=== PATIENT | female | born 1940 | race African-American/Black ===

== ENCOUNTER 2018-10-18 19:30 | Inpatient (IN) | payer MEDICARE, BC ==
[~2018-10-18] VITALS: Ht 175.3 cm; Wt 90.7 kg
[~2018-10-18 19:30] MED LIST: AMLO10TA80 PO; ASPI-1073 PO; FURO40TA5 PO; HYDR-3512 PO
[2018-10-18 20:00] VITALS: BP 211/85
[2018-10-18] MEDS ORDERED: DOCUSATE SODIUM 100MG CAPSULE PO PRN (20:30)
[2018-10-18] MEDS ORDERED: IPRATROPIUM/ALBUTEROL 0.5-3(2.5)MG/3ML NEB HHN PRN (20:30)
[2018-10-18] MEDS ORDERED: LORAZEPAM 0.5MG TABLET PO PRN (20:30)
[2018-10-18] MEDS ORDERED: GUAIFENESIN 200MG/10ML SUGAR FREE UDC PO PRN (20:30)
[2018-10-18] MEDS ORDERED: ONDANSETRON HCL 4MG/2ML INJ IV PRN (20:30)
[2018-10-18] MEDS ORDERED: DIPHENHYDRAMINE 50MG/ML VIAL IV PRN (20:30)
[2018-10-18] MEDS ORDERED: ACETAMINOPHEN 325MG TABLET PO PRN (20:30)
[2018-10-18] MEDS ORDERED: CLON0.3T PO (20:32)
[2018-10-18] MEDS ORDERED: LISI40TA4 PO (20:32)
[2018-10-18] MEDS ORDERED: NIFE90TA34 PO (20:32)
[2018-10-18] MEDS ORDERED: HYDR-4009 PO (20:32)
[2018-10-18] MEDS ORDERED: BRIM5DRO EACHEYE (20:32)
[2018-10-18] MEDS ORDERED: HYDRALAZINE 10 MG in SODIUM CHLORIDE 0.9% 49.5 ML IV PRN (21:00)
[2018-10-18] MEDS: HYDROCODONE/ACETAMINOPHEN 10/325MG TABLET PO PRN (21:09)
[2018-10-18] MEDS: CLONIDINE 0.3MG TABLET PO SCH (21:10)
[2018-10-18 21:30] VITALS: BP 211/85
[2018-10-18] MEDS: MORPHINE SULFATE 2 MG/ML CPJ (NOT FOR IM USE) IV PRN (23:16)
[2018-10-18] MEDS: SODIUM CHLORIDE 0.9% INJ 3ML FLUSH IVF SCH (23:39)
[2018-10-19] VITALS: BP 154/70
[2018-10-19] MEDS: MORPHINE SULFATE 2 MG/ML CPJ (NOT FOR IM USE) IV PRN ×3 (03:16→12:55)
[2018-10-19 04:00] VITALS: BP 168/69
[2018-10-19] MEDS: CLONIDINE 0.3MG TABLET PO SCH ×3 (06:20→22:15)
[2018-10-19] MEDS: SODIUM CHLORIDE 0.9% INJ 3ML FLUSH IVF SCH ×3 (06:20→22:40)
[2018-10-19 06:39] LABS: BASOPHILS % 0.4 % (0.0-2.0); EOSINOPHILS % 0.6 % (0.0-5.0); HEMATOCRIT. 33.3 % (36.0-48.0); HEMOGLOBIN. 11.2 g/dL (12.0-16.0); LYMPHOCYTES % 35.4 % (20.0-50.0); MEAN CORPUSCULAR HEMOGLOBIN 31.5 pg (28.0-32.0); MEAN CORPUSCULAR VOLUME 93.3 fL (81.0-99.0); MEAN PLATELET VOLUME 8.2 fl (7.4-10.4); MONOCYTES % 5.4 % (2.0-8.0); NEUTROPHILS % 58.2 % (40.0-76.0); PLATELET 266 x1000/uL (130-400); RED BLOOD CELL COUNT 3.57 mill/uL (4.2-5.4); RED CELL DISTRIBUTION WIDTH 15.6 % (11.6-14.6)
[2018-10-19 06:42] LABS: PROTHROMBIN TIME 9.9 sec (9.6-11.0)
[2018-10-19 06:44] LABS: CHLORIDE 108 mEq/L (98-107)
[2018-10-19 08:00] VITALS: BP 169/68
[2018-10-19] MEDS: FUROSEMIDE 40MG TABLET PO SCH (08:50)
[2018-10-19] MEDS: NIFEDIPINE XL 90MG TAB PO SCH (08:50)
[2018-10-19] MEDS: LISINOPRIL 40MG TABLET PO SCH (08:50)
[2018-10-19] MEDS ORDERED: ASPIRIN 81MG EC TABLET PO SCH (09:00)
[2018-10-19] MEDS ORDERED: POTASSIUM CHLORIDE 20MEQ TABLET SR PO NR (09:15)
[2018-10-19 12:00] VITALS: BP 138/75
[2018-10-19] MEDS ORDERED: GADOBENATE DIMEGLUMINE 529 MG/ML 10ML IV ONE (15:10)
[2018-10-19 16:00] VITALS: BP 124/55
[2018-10-19 20:00] VITALS: BP 163/69
[2018-10-19] MEDS: HYDROCODONE/ACETAMINOPHEN 10/325MG TABLET PO PRN (20:27)
[2018-10-20] VITALS (7 sets, daily range): BP systolic 115–205; BP diastolic 55–76
[2018-10-20] MEDS: MORPHINE SULFATE 2 MG/ML CPJ (NOT FOR IM USE) IV PRN (04:13)
[2018-10-20] MEDS: CLONIDINE 0.1MG TABLET PO PRN ×3 (04:14→11:42)
[2018-10-20] MEDS: HYDROCODONE/ACETAMINOPHEN 10/325MG TABLET PO PRN ×2 (04:27→17:56)
[2018-10-20] MEDS: CLONIDINE 0.3MG TABLET PO SCH ×3 (06:39→20:57)
[2018-10-20] MEDS: SODIUM CHLORIDE 0.9% INJ 3ML FLUSH IVF SCH ×2 (06:46→13:21)
[2018-10-20 07:17] LABS: BASOPHILS % 0.9 % (0.0-2.0); HEMATOCRIT. 34.7 % (36.0-48.0); HEMOGLOBIN. 11.5 g/dL (12.0-16.0); LYMPHOCYTES % 42.9 % (20.0-50.0); MEAN CORPUSCULAR HEMOGLOBIN 30.7 pg (28.0-32.0); MEAN CORPUSCULAR VOLUME 92.7 fL (81.0-99.0); MEAN PLATELET VOLUME 7.9 fl (7.4-10.4); MONOCYTES % 5.2 % (2.0-8.0); PLATELET 237 x1000/uL (130-400); RED BLOOD CELL COUNT 3.75 mill/uL (4.2-5.4); RED CELL DISTRIBUTION WIDTH 15.2 % (11.6-14.6)
[2018-10-20 07:28] LABS: CHLORIDE 105 mEq/L (98-107)
[2018-10-20] MEDS: FUROSEMIDE 40MG TABLET PO SCH (08:34)
[2018-10-20] MEDS: NIFEDIPINE XL 90MG TAB PO SCH (08:35)
[2018-10-20] MEDS: LISINOPRIL 40MG TABLET PO SCH (08:35)
[2018-10-20] MEDS ORDERED: LACTULOSE 20G/30ML UDC PO NR (15:30)
[2018-10-20] MEDS ORDERED: BISACODYL 5MG TABLET PO PRN (15:30)
[2018-10-20] MEDS ORDERED: DOCUSATE SODIUM 100MG CAPSULE PO SCH (17:00)
[2018-10-20] MEDS ORDERED: MORPHINE SULFATE 15MG TABLET SR PO SCH (21:00)
[2018-10-22 15:14] LABS: CANCER ANTIGEN 125 40.4 U/mL (0.0-38.1)
== END 2018-10-20 21:17 | DRG 551 ==
LOC: 6EST 19:30
PROVIDERS: ADMIT Internal Medicine Critical Care Medicine; ATTEND Internal Medicine Critical Care Medicine
DX: M48.061 Spinal stenosis, lumbar region without neurogenic claudication (principal); S34.112A Complete lesion of L2 level of lumbar spinal cord, initial encounter; E87.6 Hypokalemia; I10 Essential (primary) hypertension; J30.9 Allergic rhinitis, unspecified; J32.9 Chronic sinusitis, unspecified; M47.816 Spondylosis without myelopathy or radiculopathy, lumbar region; Z85.3 Personal history of malignant neoplasm of breast; Z88.0 Allergy status to penicillin; Z79.82 Long term (current) use of aspirin; Z79.899 Other long term (current) drug therapy; M48.07 Spinal stenosis, lumbosacral region; M43.16 Spondylolisthesis, lumbar region; M54.16 Radiculopathy, lumbar region
CPT/HCPCS: 36415; 71045; 72131; 72141; 72146; 72148; 73721; 80048; 82105; 82378; 86300; 86304; 97110; 97116; 97161; A9577; C1893; J2270

== ENCOUNTER 2018-10-20 21:20 | Inpatient (IN) | payer MEDICARE, BC ==
[~2018-10-20] VITALS: Ht 175.3 cm; Wt 90.7 kg
[~2018-10-20 21:20] MED LIST changes: +BRIM5DRO EACHEYE; +CLON0.3T PO; +HYDR-4009 PO; +LISI40TA4 PO; +NIFE90TA34 PO
[2018-10-20 21:30] VITALS: BP 121/60
[2018-10-20] MEDS ORDERED: ACETAMINOPHEN 325MG TABLET PO PRN (22:15)
[2018-10-20] MEDS ORDERED: GUAIFENESIN 200MG/10ML SUGAR FREE UDC PO PRN (22:15)
[2018-10-20] MEDS ORDERED: DIPHENHYDRAMINE 50MG/ML VIAL IV PRN (22:15)
[2018-10-20] MEDS ORDERED: LORAZEPAM 0.5MG TABLET PO PRN (22:15)
[2018-10-20] MEDS ORDERED: DOCUSATE SODIUM 100MG CAPSULE PO PRN (22:15)
[2018-10-20] MEDS ORDERED: IPRATROPIUM/ALBUTEROL 0.5-3(2.5)MG/3ML NEB HHN PRN (22:15)
[2018-10-20] MEDS ORDERED: ONDANSETRON HCL 4MG/2ML INJ IV PRN (22:15)
[2018-10-20] MEDS ORDERED: CLONIDINE 0.1MG TABLET PO PRN (22:15)
[2018-10-20] MEDS: CLONIDINE 0.3MG TABLET PO SCH (22:30)
[2018-10-21] VITALS: BP 129/58
[2018-10-21] MEDS ORDERED: HYDRALAZINE 10 MG in SODIUM CHLORIDE 0.9% 49.5 ML IV PRN (00:30)
[2018-10-21] MEDS: HYDROCODONE/ACETAMINOPHEN 10/325MG TABLET PO PRN (00:45)
[2018-10-21] MEDS: MORPHINE SULFATE 2 MG/ML CPJ (NOT FOR IM USE) IV PRN ×3 (03:59→23:51)
[2018-10-21] MEDS: CLONIDINE 0.3MG TABLET PO SCH ×3 (06:54→21:43)
[2018-10-21] MEDS: SODIUM CHLORIDE 0.9% INJ 3ML FLUSH IVF SCH ×3 (06:54→21:43)
[2018-10-21 07:58] VITALS: BP 131/58
[2018-10-21] MEDS ORDERED: BRIM5DRO EACHEYE (08:00)
[2018-10-21] MEDS: FUROSEMIDE 40MG TABLET PO SCH (09:34)
[2018-10-21] MEDS: NIFEDIPINE XL 90MG TAB PO SCH (09:34)
[2018-10-21] MEDS: DOCUSATE SODIUM 100MG CAPSULE PO SCH ×2 (09:34→16:02)
[2018-10-21] MEDS: LISINOPRIL 40MG TABLET PO SCH (09:35)
[2018-10-21] MEDS: MORPHINE SULFATE 15MG TABLET SR PO SCH ×2 (09:35→20:24)
[2018-10-21] MEDS: BISACODYL 5MG TABLET PO PRN (13:54)
[2018-10-21] MEDS: ALPHAGAN P 0.1% OP SCH (16:02)
[2018-10-21] MEDS ORDERED: BRIMONIDINE 0.2% OPHTH DROPS 5ML BOTHEYE SCH (17:00)
[2018-10-21 20:00] VITALS: BP 106/67
[2018-10-21 20:12] LABS: CLARITY URINE CLEAR (CLEAR); COLOR URINE YELLOW (YELLOW); KETONES URINE NEGATIVE (NEGATIVE); LEUKOCYTE ESTERASE URINE NEGATIVE (NEGATIVE); NITRITE URINE NEGATIVE (NEGATIVE); OCCULT BLOOD URINE TRACE (NEGATIVE); PROTEIN URINE NEGATIVE (NEGATIVE); SPECIFIC GRAVITY URINE 1.014 (1.005-1.030); UROBILINOGEN URINE 0.2 E.U./dL (0.2-1.0)
[2018-10-22] MEDS: MORPHINE SULFATE 2 MG/ML CPJ (NOT FOR IM USE) IV PRN (00:41)
[2018-10-22] MEDS: CLONIDINE 0.3MG TABLET PO SCH ×3 (05:26→22:00)
[2018-10-22] MEDS: SODIUM CHLORIDE 0.9% INJ 3ML FLUSH IVF SCH ×3 (05:27→22:08)
[2018-10-22 06:41] LABS: BASOPHILS % 1.3 % (0.0-2.0); EOSINOPHILS % 2.9 % (0.0-5.0); HEMATOCRIT. 35.2 % (36.0-48.0); MEAN CORPUSCULAR HEMOGLOBIN 31.5 pg (28.0-32.0); MEAN CORPUSCULAR VOLUME 92.4 fL (81.0-99.0); MEAN PLATELET VOLUME 7.3 fl (7.4-10.4); NEUTROPHILS % 54.8 % (40.0-76.0); PLATELET 184 x1000/uL (130-400); RED BLOOD CELL COUNT 3.81 mill/uL (4.2-5.4)
[2018-10-22] MEDS: HYDROCODONE/ACETAMINOPHEN 10/325MG TABLET PO PRN ×2 (06:44→14:54)
[2018-10-22 06:48] LABS: CHLORIDE 104 mEq/L (98-107)
[2018-10-22 07:52] VITALS: BP 126/63
[2018-10-22] MEDS: DOCUSATE SODIUM 100MG CAPSULE PO SCH ×2 (08:37→16:18)
[2018-10-22] MEDS: MORPHINE SULFATE 15MG TABLET SR PO SCH ×2 (08:37→20:39)
[2018-10-22] MEDS: ALPHAGAN P 0.1% OP SCH ×2 (08:37→16:18)
[2018-10-22] MEDS: NIFEDIPINE XL 90MG TAB PO SCH (08:38)
[2018-10-22] MEDS: LISINOPRIL 40MG TABLET PO SCH (08:38)
[2018-10-22] MEDS: FUROSEMIDE 40MG TABLET PO SCH (08:42)
[2018-10-22] MEDS ORDERED: POTASSIUM CHLORIDE 20MEQ TABLET SR PO NR (09:45)
[2018-10-22 20:00] VITALS: BP 120/50
[2018-10-23] MEDS: MORPHINE SULFATE 2 MG/ML CPJ (NOT FOR IM USE) IV PRN ×2 (00:49→15:17)
[2018-10-23] MEDS: CLONIDINE 0.3MG TABLET PO SCH ×3 (05:30→22:19)
[2018-10-23] MEDS: SODIUM CHLORIDE 0.9% INJ 3ML FLUSH IVF SCH ×3 (05:38→20:44)
[2018-10-23 07:21] LABS: CHLORIDE 106 mEq/L (98-107)
[2018-10-23 07:38] VITALS: BP 122/53
[2018-10-23] MEDS: DOCUSATE SODIUM 100MG CAPSULE PO SCH ×2 (08:36→16:28)
[2018-10-23] MEDS: NIFEDIPINE XL 90MG TAB PO SCH (08:37)
[2018-10-23] MEDS: MORPHINE SULFATE 15MG TABLET SR PO SCH ×2 (08:37→20:43)
[2018-10-23] MEDS: FUROSEMIDE 40MG TABLET PO SCH (08:37)
[2018-10-23] MEDS: LISINOPRIL 40MG TABLET PO SCH (08:38)
[2018-10-23] MEDS: ALPHAGAN P 0.1% OP SCH ×2 (08:42→16:28)
[2018-10-23] MEDS: BISACODYL 5MG TABLET PO PRN (16:28)
[2018-10-23 20:00] VITALS: BP 121/59
[2018-10-24] MEDS: CLONIDINE 0.3MG TABLET PO SCH ×3 (05:45→22:00)
[2018-10-24] MEDS: SODIUM CHLORIDE 0.9% INJ 3ML FLUSH IVF SCH ×3 (05:45→21:37)
[2018-10-24 06:43] LABS: BASOPHILS % 0.7 % (0.0-2.0); HEMATOCRIT. 38.9 % (36.0-48.0); HEMOGLOBIN. 12.8 g/dL (12.0-16.0); LYMPHOCYTES % 37.8 % (20.0-50.0); MEAN CORPUSCULAR VOLUME 93.8 fL (81.0-99.0); MEAN PLATELET VOLUME 7.6 fl (7.4-10.4); MONOCYTES % 8.4 % (2.0-8.0); NEUTROPHILS % 50.1 % (40.0-76.0); PLATELET 179 x1000/uL (130-400); RED BLOOD CELL COUNT 4.15 mill/uL (4.2-5.4); RED CELL DISTRIBUTION WIDTH 14.6 % (11.6-14.6)
[2018-10-24 06:57] LABS: CHLORIDE 106 mEq/L (98-107)
[2018-10-24 07:44] VITALS: BP 163/135
[2018-10-24] MEDS: DOCUSATE SODIUM 100MG CAPSULE PO SCH ×2 (08:16→16:00)
[2018-10-24] MEDS: LISINOPRIL 40MG TABLET PO SCH (08:16)
[2018-10-24] MEDS: MORPHINE SULFATE 15MG TABLET SR PO SCH ×2 (08:16→20:57)
[2018-10-24] MEDS: NIFEDIPINE XL 90MG TAB PO SCH (08:16)
[2018-10-24] MEDS: FUROSEMIDE 40MG TABLET PO SCH (08:20)
[2018-10-24] MEDS: ALPHAGAN P 0.1% OP SCH ×2 (09:04→16:01)
[2018-10-24] MEDS: BISACODYL 5MG TABLET PO PRN (11:58)
[2018-10-24] MEDS: MORPHINE SULFATE 2 MG/ML CPJ (NOT FOR IM USE) IV PRN (18:59)
[2018-10-24 20:00] VITALS: BP 117/60
[2018-10-24] MEDS: LACTULOSE 20G/30ML UDC PO PRN (20:56)
[2018-10-25] MEDS: HYDROCODONE/ACETAMINOPHEN 10/325MG TABLET PO PRN ×3 (03:57→17:07)
[2018-10-25] MEDS: SODIUM CHLORIDE 0.9% INJ 3ML FLUSH IVF SCH ×3 (05:46→20:46)
[2018-10-25] MEDS: CLONIDINE 0.3MG TABLET PO SCH ×3 (05:46→22:00)
[2018-10-25 08:00] VITALS: BP 133/55
[2018-10-25] MEDS: NIFEDIPINE XL 90MG TAB PO SCH (09:00)
[2018-10-25] MEDS: FUROSEMIDE 40MG TABLET PO SCH (09:10)
[2018-10-25] MEDS: LISINOPRIL 40MG TABLET PO SCH (09:11)
[2018-10-25] MEDS: DOCUSATE SODIUM 100MG CAPSULE PO SCH ×2 (09:11→16:54)
[2018-10-25] MEDS: MORPHINE SULFATE 15MG TABLET SR PO SCH ×2 (09:28→20:47)
[2018-10-25] MEDS: ALPHAGAN P 0.1% OP SCH ×2 (09:29→16:54)
[2018-10-25 20:00] VITALS: BP 129/55
[2018-10-25] MEDS: LACTULOSE 20G/30ML UDC PO PRN (20:46)
[2018-10-26] VITALS (10 sets, daily range): BP systolic 112–191; BP diastolic 57–95
[2018-10-26] MEDS: HYDROCODONE/ACETAMINOPHEN 10/325MG TABLET PO PRN ×3 (01:19→17:20)
[2018-10-26] MEDS: CLONIDINE 0.3MG TABLET PO SCH ×3 (05:54→22:00)
[2018-10-26] MEDS: SODIUM CHLORIDE 0.9% INJ 3ML FLUSH IVF SCH ×3 (06:20→22:00)
[2018-10-26] MEDS: LISINOPRIL 40MG TABLET PO SCH (08:27)
[2018-10-26] MEDS: DOCUSATE SODIUM 100MG CAPSULE PO SCH ×2 (08:27→17:40)
[2018-10-26] MEDS: MORPHINE SULFATE 15MG TABLET SR PO SCH ×2 (08:28→21:10)
[2018-10-26] MEDS: FUROSEMIDE 40MG TABLET PO SCH (08:28)
[2018-10-26] MEDS: NIFEDIPINE XL 90MG TAB PO SCH (08:29)
[2018-10-26] MEDS: ALPHAGAN P 0.1% OP SCH ×2 (08:29→17:42)
[2018-10-26] MEDS ORDERED: LIDOCAINE HCL 1% 20ML VIAL (Pyxis) INJ ONE (12:14)
[2018-10-26] MEDS ORDERED: FENTANYL CITRATE/PF 50MCG/ML 2ML VIAL ONE (12:14)
[2018-10-26] MEDS ORDERED: SODIUM BICARBONATE 4% (2.4MEQ) 5ML VIAL IV ONE (12:14)
[2018-10-26] MEDS ORDERED: FENTANYL CITRATE/PF 50MCG/ML 2ML VIAL IV ONE (13:45)
[2018-10-27] MEDS: CLONIDINE 0.3MG TABLET PO SCH ×3 (05:56→22:00)
[2018-10-27] MEDS: LACTULOSE 20G/30ML UDC PO PRN (05:56)
[2018-10-27] MEDS: SODIUM CHLORIDE 0.9% INJ 3ML FLUSH IVF SCH ×2 (06:00→13:09)
[2018-10-27] MEDS: HYDROCODONE/ACETAMINOPHEN 10/325MG TABLET PO PRN ×3 (06:20→19:21)
[2018-10-27 07:56] VITALS: BP 136/68
[2018-10-27 08:00] VITALS: BP 136/68
[2018-10-27] MEDS: FUROSEMIDE 40MG TABLET PO SCH ×2 (08:19→08:43)
[2018-10-27] MEDS: ALPHAGAN P 0.1% OP SCH ×2 (08:19→16:16)
[2018-10-27] MEDS: DOCUSATE SODIUM 100MG CAPSULE PO SCH ×2 (08:19→16:16)
[2018-10-27] MEDS: MORPHINE SULFATE 15MG TABLET SR PO SCH ×2 (08:19→21:57)
[2018-10-27] MEDS: NIFEDIPINE XL 90MG TAB PO SCH (08:19)
[2018-10-27] MEDS: LISINOPRIL 40MG TABLET PO SCH (08:19)
[2018-10-27] MEDS: DEXAMETHASONE 4MG TABLET PO SCH ×2 (14:18→22:00)
[2018-10-27 20:00] VITALS: BP 123/61
[2018-10-28] MEDS: DEXAMETHASONE 4MG TABLET PO SCH (06:03)
[2018-10-28] MEDS: HYDROCODONE/ACETAMINOPHEN 10/325MG TABLET PO PRN (06:07)
[2018-10-28] MEDS: CLONIDINE 0.3MG TABLET PO SCH (06:08)
[2018-10-28 08:06] VITALS: BP 145/63
[2018-10-28] MEDS: DOCUSATE SODIUM 100MG CAPSULE PO SCH (08:47)
[2018-10-28] MEDS: LISINOPRIL 40MG TABLET PO SCH (08:47)
[2018-10-28] MEDS: NIFEDIPINE XL 90MG TAB PO SCH (08:47)
[2018-10-28] MEDS: ALPHAGAN P 0.1% OP SCH (08:47)
[2018-10-28] MEDS: FUROSEMIDE 40MG TABLET PO SCH (08:48)
[2018-10-28] MEDS: MORPHINE SULFATE 15MG TABLET SR PO SCH (08:48)
[2018-10-28 12:36] VITALS: BP 134/62
== END 2018-10-28 13:25 | disposition home health service (06) | DRG 479 ==
LOC: MERGE 21:20
PROVIDERS: ADMIT Psychiatry & Neurology Neurology; ATTEND Internal Medicine Critical Care Medicine
PROC: 0QB73ZX Excision of Left Upper Femur, Percutaneous Approach, Diagnostic (ICD-10-PCS; principal; 2018-10-26)
DX: C79.51 Secondary malignant neoplasm of bone (principal); M54.16 Radiculopathy, lumbar region; E87.6 Hypokalemia; I10 Essential (primary) hypertension; J30.9 Allergic rhinitis, unspecified; R26.9 Unspecified abnormalities of gait and mobility; Z60.2 Problems related to living alone; F06.31 Mood disorder due to known physiological condition with depressive features; M54.40 Lumbago with sciatica, unspecified side; J32.9 Chronic sinusitis, unspecified; D64.9 Anemia, unspecified; Z85.3 Personal history of malignant neoplasm of breast; Z91.048 Other nonmedicinal substance allergy status; Z88.1 Allergy status to other antibiotic agents
CPT/HCPCS: 36415; 71250; 73552; 74176; 77012; 78306; 80048; 81003; 82378; 86300; 88305; 88311; 93970; 97110; 97116; 97162; 97166; 97530; 97535; 99152; 99153; A9503; C1893; J2270; J3010; J3490; J8540; G0500

== ENCOUNTER → 2019-03-13 | Outpatient (CLI) | payer MEDICARE, BC ==
[~2019-03-13] MED LIST changes: +BARIUM SULFATE 450ML ORAL SUSP ONE; +IOHEXOL-300 100 ML BOTTLE ONE; -NIFE90TA34 PO; +NIFE90TA60 PO
== END | disposition home or self-care (01) ==
LOC: CT 10:35
PROVIDERS: ATTEND Internal Medicine Hematology & Oncology
DX: M84.48XA Pathological fracture, other site, initial encounter for fracture (principal); I26.99 Other pulmonary embolism without acute cor pulmonale; I28.1 Aneurysm of pulmonary artery; I27.20 Pulmonary hypertension, unspecified; I96 Gangrene, not elsewhere classified; Z90.12 Acquired absence of left breast and nipple; C50.412 Malignant neoplasm of upper-outer quadrant of left female breast
CPT/HCPCS: 71260; 74177; C1893; Q9967

== ENCOUNTER → 2019-03-16 | Outpatient (CLI) | payer MEDICARE, BC ==
[~2019-03-16] MED LIST changes: -BARIUM SULFATE 450ML ORAL SUSP ONE; +GADOBENATE DIMEGLUMINE 529 MG/ML 10ML IV ONE; -IOHEXOL-300 100 ML BOTTLE ONE
== END | disposition home or self-care (01) ==
LOC: RAD 08:24
PROVIDERS: ATTEND Neurological Surgery
DX: M48.061 Spinal stenosis, lumbar region without neurogenic claudication (principal); M47.816 Spondylosis without myelopathy or radiculopathy, lumbar region; M25.9 Joint disorder, unspecified
CPT/HCPCS: 72158; A9577

== ENCOUNTER 2019-07-06 12:46 | Inpatient (IN) | payer MEDICARE, BC ==
[~2019-07-06] VITALS: Ht 175.3 cm; Wt 95.3 kg
[~2019-07-06 12:46] MED LIST changes: -GADOBENATE DIMEGLUMINE 529 MG/ML 10ML IV ONE
[2019-07-06] MEDS ORDERED: HYDR-2510 MT (13:47)
[2019-07-06] MEDS ORDERED: CAPE500T15 PO (13:47)
[2019-07-06] MEDS ORDERED: HYDR1LIQ PO (13:47)
[2019-07-06] MEDS ORDERED: PRED10TA23 PO (13:47)
[2019-07-06] MEDS ORDERED: APIX5TAB PO (13:47)
[2019-07-06 14:00] VITALS: BP 195/82
[2019-07-06] MEDS ORDERED: DOCUSATE SODIUM 100MG CAPSULE PO PRN (14:00)
[2019-07-06] MEDS ORDERED: IPRATROPIUM/ALBUTEROL 0.5-3(2.5)MG/3ML NEB HHN PRN (14:00)
[2019-07-06] MEDS ORDERED: ONDANSETRON HCL 4MG/2ML INJ IV PRN (14:00)
[2019-07-06] MEDS ORDERED: ACETAMINOPHEN 325MG TABLET PO PRN (14:00)
[2019-07-06] MEDS ORDERED: DIPHENHYDRAMINE 50MG/ML VIAL IV PRN (14:00)
[2019-07-06] MEDS ORDERED: MAGNESIUM/ALUMINUM HYDROXIDE/SIMETHICONE 30ML UDC PO PRN (14:00)
[2019-07-06] MEDS ORDERED: GUAIFENESIN 200MG/10ML SUGAR FREE UDC PO PRN (14:00)
[2019-07-06] MEDS ORDERED: HYDROCODONE/ACETAMINOPHEN 10/325MG TABLET PO SCH (14:15)
[2019-07-06] MEDS ORDERED: HYDROCODONE/ACETAMINOPHEN 10/325MG TABLET PO PRN (14:30)
[2019-07-06] MEDS ORDERED: LISINOPRIL 40MG TABLET PO SCH (15:00)
[2019-07-06] MEDS ORDERED: NIFEDIPINE XL 90MG TAB PO SCH (15:00)
[2019-07-06] MEDS: CLONIDINE 0.3MG TABLET PO SCH ×2 (15:28→21:37)
[2019-07-06 16:00] VITALS: BP 160/75
[2019-07-06 16:16] LABS: BASOPHILS % 0.3 % (0.0-2.0); HEMATOCRIT. 34.6 % (36.0-48.0); HEMOGLOBIN. 12.1 g/dL (12.0-16.0); LYMPHOCYTES % 18.3 % (20.0-50.0); MEAN PLATELET VOLUME 7.2 fl (7.4-10.4); MONOCYTES % 5.4 % (2.0-8.0); PLATELET 261 x1000/uL (130-400); RED BLOOD CELL COUNT 3.26 mill/uL (4.2-5.4); RED CELL DISTRIBUTION WIDTH 17.3 % (11.6-14.6)
[2019-07-06 16:21] LABS: CHLORIDE 101 mEq/L (98-107)
[2019-07-06 16:22] LABS: PROTHROMBIN TIME 10.6 sec (9.6-11.0)
[2019-07-06] MEDS: MORPHINE SULFATE 2 MG/ML CPJ (NOT FOR IM USE) IV PRN ×2 (17:16→21:37)
[2019-07-06] MEDS: ENOXAPARIN 80MG/0.8ML SYR SUBCUT SCH (17:17)
[2019-07-06 20:00] VITALS: BP 135/69
[2019-07-06] MEDS ORDERED: POTASSIUM CHLORIDE 20MEQ TABLET SR PO NR (21:00)
[2019-07-07] VITALS: BP 138/57
[2019-07-07 04:00] VITALS: BP 165/69
[2019-07-07] MEDS: MORPHINE SULFATE 2 MG/ML CPJ (NOT FOR IM USE) IV PRN ×2 (05:06→10:59)
[2019-07-07] MEDS: CLONIDINE 0.1MG TABLET PO PRN (05:06)
[2019-07-07] MEDS: ENOXAPARIN 80MG/0.8ML SYR SUBCUT SCH (05:09)
[2019-07-07 06:37] LABS: CHLORIDE 104 mEq/L (98-107)
[2019-07-07 08:00] VITALS: BP 150/62
[2019-07-07] MEDS ORDERED: NIFEDIPINE XL 90MG TAB PO SCH (09:00)
[2019-07-07] MEDS: FUROSEMIDE 40MG TABLET PO SCH ×2 (09:00→09:24)
[2019-07-07] MEDS: HYDROCHLOROTHIAZIDE 25MG TABLET PO SCH ×2 (09:00→09:25)
[2019-07-07] MEDS ORDERED: NON FORMULARY PATIENT HOME MED XX SCH (09:15)
[2019-07-07] MEDS: LISINOPRIL 40MG TABLET PO SCH (09:23)
[2019-07-07] MEDS ORDERED: GADOBENATE DIMEGLUMINE 529 MG/ML 10ML IV ONE (09:55)
[2019-07-07 12:00] VITALS: BP 156/69
[2019-07-07] MEDS ORDERED: MORPHINE SULFATE 2 MG/ML CPJ (NOT FOR IM USE) IV PRN (13:30)
[2019-07-07] MEDS: HYDROMORPHONE HCL/PF 2MG/ML CPJ IV PRN ×2 (13:50→17:50)
[2019-07-07] MEDS: CAPECITABINE 500MG TABLET PO SCH ×2 (15:59→22:10)
[2019-07-07 16:00] VITALS: BP 154/68
[2019-07-07 16:15] LABS: CLARITY URINE CLEAR (CLEAR); COLOR URINE YELLOW (YELLOW); KETONES URINE NEGATIVE (NEGATIVE); LEUKOCYTE ESTERASE URINE NEGATIVE (NEGATIVE); NITRITE URINE NEGATIVE (NEGATIVE); OCCULT BLOOD URINE TRACE (NEGATIVE); PROTEIN URINE NEGATIVE (NEGATIVE); UROBILINOGEN URINE 0.2 E.U./dL (0.2-1.0)
[2019-07-07] MEDS: CLONIDINE 0.3MG TABLET PO SCH ×2 (17:58→22:08)
[2019-07-07 20:00] VITALS: BP 137/74
[2019-07-07] MEDS: AMLODIPINE 5MG TABLET PO SCH (21:17)
[2019-07-08 00:08] VITALS: BP 120/58
[2019-07-08] MEDS: HYDROMORPHONE HCL/PF 2MG/ML CPJ IV PRN ×4 (00:41→17:04)
[2019-07-08 04:00] VITALS: BP 131/60
[2019-07-08] MEDS: CLONIDINE 0.3MG TABLET PO SCH ×3 (05:48→20:52)
[2019-07-08 06:50] LABS: BASOPHILS % 0.4 % (0.0-2.0); EOSINOPHILS % 1.6 % (0.0-5.0); HEMATOCRIT. 26.1 % (36.0-48.0); HEMOGLOBIN. 9.1 g/dL (12.0-16.0); LYMPHOCYTES % 24.1 % (20.0-50.0); MEAN CORPUSCULAR VOLUME 108.9 fL (81.0-99.0); MEAN PLATELET VOLUME 6.5 fl (7.4-10.4); MONOCYTES % 11.2 % (2.0-8.0); NEUTROPHILS % 62.7 % (40.0-76.0); PLATELET 148 x1000/uL (130-400); RED CELL DISTRIBUTION WIDTH 17.3 % (11.6-14.6)
[2019-07-08 08:09] LABS: CHLORIDE 101 mEq/L (98-107)
[2019-07-08 08:13] LABS: PARTIAL THROMBOPLASTIN TIME 24.6 sec (23.4-31.0); PROTHROMBIN TIME 10.7 sec (9.6-11.0)
[2019-07-08] MEDS: FUROSEMIDE 40MG TABLET PO SCH (08:27)
[2019-07-08] MEDS: HYDROCHLOROTHIAZIDE 25MG TABLET PO SCH (08:28)
[2019-07-08] MEDS: DOCUSATE SODIUM 250MG CAPSULE PO SCH ×2 (08:32→17:00)
[2019-07-08] MEDS: AMLODIPINE 5MG TABLET PO SCH ×2 (08:33→20:52)
[2019-07-08] MEDS: LISINOPRIL 40MG TABLET PO SCH (09:00)
[2019-07-08] MEDS ORDERED: MAGNESIUM CITRATE 300ML SOLUTION PO SCH (09:00)
[2019-07-08 09:23] VITALS: BP 96/50
[2019-07-08 13:05] VITALS: BP 117/57
[2019-07-08 16:31] VITALS: BP 107/59
[2019-07-08 20:00] VITALS: BP 105/54
[2019-07-09] VITALS (56 sets, daily range): BP systolic 88–198; BP diastolic 36–69
[2019-07-09] MEDS ORDERED: SODIUM CHLORIDE 0.9% 1,000 ML IV SCH
[2019-07-09] MEDS: HYDROMORPHONE HCL/PF 2MG/ML CPJ IV PRN ×3 (01:07→11:42)
[2019-07-09] MEDS: CLONIDINE 0.3MG TABLET PO SCH ×3 (06:00→20:44)
[2019-07-09] MEDS ORDERED: LIDOCAINE HCL/EPINEPHRINE 1%-EPI 1:100,000 20 ML VIAL ONE ×2 (06:35→09:29)
[2019-07-09] MEDS ORDERED: BACITRACIN 50,000 UNITS/VIAL ONE (06:36)
[2019-07-09] MEDS ORDERED: THROMBIN (BOVINE) 5000 UNITS/VIAL TOP ONE (06:36)
[2019-07-09 07:24] LABS: BASOPHILS % 0.8 % (0.0-2.0); EOSINOPHILS % 1.6 % (0.0-5.0); HEMATOCRIT. 37.2 % (36.0-48.0); HEMOGLOBIN. 13.1 g/dL (12.0-16.0); LYMPHOCYTES % 19.1 % (20.0-50.0); MEAN CORPUSCULAR HEMOGLOBIN 37.5 pg (28.0-32.0); MEAN CORPUSCULAR VOLUME 106.6 fL (81.0-99.0); MEAN PLATELET VOLUME 6.8 fl (7.4-10.4); MONOCYTES % 10.8 % (2.0-8.0); NEUTROPHILS % 67.7 % (40.0-76.0); PLATELET 263 x1000/uL (130-400); RED BLOOD CELL COUNT 3.49 mill/uL (4.2-5.4); RED CELL DISTRIBUTION WIDTH 17.4 % (11.6-14.6)
[2019-07-09] MEDS ORDERED: GLYCOPYRROLATE 0.2 MG/ML 2ML VIAL ONE (07:34)
[2019-07-09] MEDS ORDERED: FENTANYL CITRATE/PF 50MCG/ML 2ML VIAL ONE ×2 (07:34→08:40)
[2019-07-09] MEDS ORDERED: SUCCINYLCHOLINE CHLORIDE 200MG/10ML IV ONE (07:34)
[2019-07-09] MEDS ORDERED: ONDANSETRON HCL 4MG/2ML INJ ONE (07:34)
[2019-07-09] MEDS ORDERED: PROPOFOL 200MG/20ML VIAL IV ONE ×2 (07:34→08:52)
[2019-07-09] MEDS ORDERED: DEXAMETHASONE 4MG/ML 1ML VIAL ONE (07:34)
[2019-07-09] MEDS ORDERED: PHENYLEPHRINE HCL 10 MG/ML 1ML (IV VIAL) IV ONE (07:34)
[2019-07-09] MEDS ORDERED: NEOSTIGMINE METHYLSULFATE 1MG/ML 10 ML VIAL ONE (07:34)
[2019-07-09] MEDS ORDERED: CEFAZOLIN SODIUM 1000MG/VIAL ONE (07:34)
[2019-07-09] MEDS ORDERED: METOCLOPRAMIDE HCL 10MG/2ML VIAL ONE (07:34)
[2019-07-09] MEDS ORDERED: SODIUM CHLORIDE 0.9% 10ML VIAL ONE (07:34)
[2019-07-09] MEDS ORDERED: MIDAZOLAM HCL 2 MG/2 ML VIAL ONE (07:34)
[2019-07-09] MEDS ORDERED: ROCURONIUM BROMIDE 10MG/ML VIAL 5ML IV ONE ×3 (07:34→08:47)
[2019-07-09] MEDS ORDERED: EPHEDRINE SULFATE 50MG/ML VIAL ONE (07:34)
[2019-07-09] MEDS: HYDROCHLOROTHIAZIDE 25MG TABLET PO SCH (08:29)
[2019-07-09] MEDS: DOCUSATE SODIUM 250MG CAPSULE PO SCH ×2 (08:29→17:22)
[2019-07-09] MEDS ORDERED: ALBUMIN HUMAN 12.5G/250ML (5%) IV ONE (08:30)
[2019-07-09] MEDS: LISINOPRIL 40MG TABLET PO SCH (08:30)
[2019-07-09] MEDS: AMLODIPINE 5MG TABLET PO SCH ×2 (08:30→20:44)
[2019-07-09] MEDS: FUROSEMIDE 40MG TABLET PO SCH (08:30)
[2019-07-09] MEDS ORDERED: MORPHINE SULFATE 4 MG/ML CPJ (NOT FOR IM USE) IV PRN (10:45)
[2019-07-09] MEDS: DEXT 5%/LACTATED RINGERS 1,000 ML IV SCH (10:45)
[2019-07-09] MEDS ORDERED: LABETALOL HCL 5MG/ML VIAL 20ML IV ONE (10:50)
[2019-07-09] MEDS ORDERED: HYDRALAZINE 20MG/ML VIAL ONE (10:50)
[2019-07-09] MEDS ORDERED: NALOXONE INJ IV PRN (11:30)
[2019-07-09] MEDS ORDERED: ONDANSETRON INJ IV PRN (11:30)
[2019-07-09] MEDS ORDERED: DIPHENHYDRAMINE INJ IV PRN (11:30)
[2019-07-09] MEDS: NICARDIPINE 100 MG in SODIUM CHLORIDE 0.9% 60 ML IV PRN ×2 (11:52→18:27)
[2019-07-09] MEDS: HYDROMORPHONE PCA 10MG/50ML IV PRN (11:53)
[2019-07-09] MEDS ORDERED: LABETALOL 5MG/ML SYR 20 MG/4 ML SYRINGE IV SCH (12:00)
[2019-07-09] MEDS ORDERED: CEFAZOLIN SODIUM 1000MG/VIAL IV SCH (14:00)
[2019-07-09] MEDS: CEFAZOLIN 1000MG PREMIX 50 ML IV SCH ×2 (14:16→20:45)
[2019-07-09] MEDS: CLONIDINE 0.1MG TABLET PO PRN (17:23)
[2019-07-10] VITALS (67 sets, daily range): BP systolic 93–164; BP diastolic 27–75
[2019-07-10] MEDS: DEXT 5%/LACTATED RINGERS 1,000 ML IV SCH ×2 (00:43→09:49)
[2019-07-10] MEDS: HYDROMORPHONE PCA 10MG/50ML IV PRN (01:50)
[2019-07-10] MEDS: CEFAZOLIN 1000MG PREMIX 50 ML IV SCH ×2 (05:13→14:18)
[2019-07-10] MEDS: CLONIDINE 0.3MG TABLET PO SCH ×2 (05:13→14:00)
[2019-07-10] MEDS: CAPECITABINE 500MG TABLET PO SCH (09:00)
[2019-07-10] MEDS: HYDROCHLOROTHIAZIDE 25MG TABLET PO SCH (09:45)
[2019-07-10] MEDS: AMLODIPINE 5MG TABLET PO SCH ×2 (09:45→21:00)
[2019-07-10] MEDS: LISINOPRIL 40MG TABLET PO SCH (09:45)
[2019-07-10] MEDS: FUROSEMIDE 40MG TABLET PO SCH (09:45)
[2019-07-10] MEDS: DOCUSATE SODIUM 250MG CAPSULE PO SCH ×2 (09:45→17:26)
[2019-07-10] MEDS ORDERED: POTASSIUM CHLORIDE 20MEQ/PACKET PO NR (10:15)
[2019-07-10] MEDS ORDERED: LACTULOSE 20G/30ML UDC PO NR (11:15)
[2019-07-10] MEDS: HYDROMORPHONE HCL/PF 2MG/ML CPJ IV PRN ×3 (12:20→20:23)
[2019-07-11] VITALS: BP 145/50
[2019-07-11] MEDS: HYDROMORPHONE HCL/PF 2MG/ML CPJ IV PRN (00:08)
[2019-07-11] MEDS: CLONIDINE 0.3MG TABLET PO SCH ×4 (00:37→22:00)
[2019-07-11] MEDS: CEFAZOLIN 1000MG PREMIX 50 ML IV SCH ×2 (00:37→06:13)
[2019-07-11] MEDS: CAPECITABINE 500MG TABLET PO SCH ×3 (00:59→21:00)
[2019-07-11 04:00] VITALS: BP 141/63
[2019-07-11 06:59] LABS: BASOPHILS % 0.2 % (0.0-2.0); EOSINOPHILS % 0.7 % (0.0-5.0); LYMPHOCYTES % 12.1 % (20.0-50.0); MEAN CORPUSCULAR HEMOGLOBIN 37.6 pg (28.0-32.0); MEAN CORPUSCULAR VOLUME 108.1 fL (81.0-99.0); MONOCYTES % 8.8 % (2.0-8.0); NEUTROPHILS % 78.2 % (40.0-76.0); PLATELET 203 x1000/uL (130-400); RED BLOOD CELL COUNT 2.44 mill/uL (4.2-5.4); RED CELL DISTRIBUTION WIDTH 17.6 % (11.6-14.6)
[2019-07-11 07:26] LABS: CHLORIDE 104 mEq/L (98-107)
[2019-07-11 07:32] LABS: PHOSPHORUS 1.8 mg/dL (2.5-4.9)
[2019-07-11 08:00] VITALS: BP 104/44
[2019-07-11 08:08] LABS: HEMATOCRIT. 26.4 % (36.0-48.0); HEMOGLOBIN. 9.2 g/dL (12.0-16.0)
[2019-07-11] MEDS: AMLODIPINE 5MG TABLET PO SCH (08:56)
[2019-07-11] MEDS: HYDROCHLOROTHIAZIDE 25MG TABLET PO SCH (08:56)
[2019-07-11] MEDS: LISINOPRIL 40MG TABLET PO SCH (08:57)
[2019-07-11] MEDS: FUROSEMIDE 40MG TABLET PO SCH (08:57)
[2019-07-11] MEDS: DOCUSATE SODIUM 250MG CAPSULE PO SCH ×2 (08:57→17:00)
[2019-07-11 12:00] VITALS: BP 104/44
[2019-07-11] MEDS ORDERED: HYDROCODONE/ACETAMINOPHEN 5/325MG TABLET PO PRN (12:15)
[2019-07-11] MEDS ORDERED: HYDROMORPHONE HCL/PF 2MG/ML CPJ IV PRN ×2 (12:15→20:45)
[2019-07-11] MEDS ORDERED: BISACODYL 5MG TABLET PO PRN (13:15)
[2019-07-11] MEDS ORDERED: LACTULOSE 20G/30ML UDC PO NR (13:15)
[2019-07-11] MEDS ORDERED: BUPIVACAINE HCL/EPINEPHRINE/PF 0.5%/0.0005 10ML ONE (15:11)
[2019-07-11] MEDS ORDERED: BACITRACIN 50,000 UNITS/VIAL ONE (15:12)
[2019-07-11] MEDS ORDERED: VANCOMYCIN HCL 1 GM/VIAL ONE (15:12)
[2019-07-11 16:00] VITALS: BP 131/49
[2019-07-11] MEDS ORDERED: MIDAZOLAM HCL 2 MG/2 ML VIAL ONE (18:49)
[2019-07-11] MEDS ORDERED: ROCURONIUM BROMIDE 10MG/ML VIAL 5ML IV ONE (18:49)
[2019-07-11] MEDS ORDERED: FENTANYL CITRATE/PF 50MCG/ML 2ML VIAL ONE ×2 (18:49→19:17)
[2019-07-11] MEDS ORDERED: NEOSTIGMINE METHYLSULFATE 1MG/ML 10 ML VIAL ONE (18:49)
[2019-07-11] MEDS ORDERED: PROPOFOL 200MG/20ML VIAL IV ONE (18:49)
[2019-07-11] MEDS ORDERED: METOCLOPRAMIDE HCL 10MG/2ML VIAL ONE (18:50)
[2019-07-11] MEDS ORDERED: GLYCOPYRROLATE 0.2 MG/ML 2ML VIAL ONE (18:50)
[2019-07-11] MEDS ORDERED: SUCCINYLCHOLINE CHLORIDE 200MG/10ML IV ONE (18:50)
[2019-07-11] MEDS ORDERED: PHENYLEPHRINE HCL 10 MG/ML 1ML (IV VIAL) IV ONE (18:50)
[2019-07-11] MEDS ORDERED: EPHEDRINE SULFATE 50MG/ML VIAL ONE (18:50)
[2019-07-11] MEDS ORDERED: ONDANSETRON HCL 4MG/2ML INJ ONE (18:50)
[2019-07-11] MEDS ORDERED: DIPHENHYDRAMINE INJ IV PRN (20:45)
[2019-07-11] MEDS ORDERED: NALOXONE INJ IV PRN (20:45)
[2019-07-11] MEDS ORDERED: ONDANSETRON INJ IV PRN (20:45)
[2019-07-11] MEDS ORDERED: ONDANSETRON HCL 4MG/2ML INJ IV PRN (20:45)
[2019-07-11] MEDS ORDERED: HYDROMORPHONE PCA 10MG/50ML IV PRN (20:45)
[2019-07-11] MEDS ORDERED: MORPHINE SULFATE 2 MG/ML CPJ (NOT FOR IM USE) IV PRN (20:45)
[2019-07-11] MEDS ORDERED: SODIUM CHLORIDE 0.9% 1,000 ML IV ONE (21:00)
[2019-07-11] MEDS: OXYCODONE HCL 10MG TABLET SR 12HR PO SCH (21:00)
[2019-07-11] MEDS ORDERED: CEFAZOLIN SODIUM 1000MG/VIAL IV SCH (22:00)
[2019-07-11 22:30] VITALS: BP 161/53
[2019-07-12] MEDS: AMLODIPINE 5MG TABLET PO SCH ×3 (00:44→21:00)
[2019-07-12] MEDS: CEFAZOLIN 1000MG PREMIX 50 ML IV SCH ×4 (00:45→21:07)
[2019-07-12 04:00] VITALS: BP 159/54
[2019-07-12 05:20] LABS: BASOPHILS % 0.4 % (0.0-2.0); EOSINOPHILS % 0.8 % (0.0-5.0); HEMATOCRIT. 25.1 % (36.0-48.0); HEMOGLOBIN. 8.8 g/dL (12.0-16.0); LYMPHOCYTES % 14.1 % (20.0-50.0); MEAN CORPUSCULAR HEMOGLOBIN 37.8 pg (28.0-32.0); MEAN CORPUSCULAR VOLUME 108.1 fL (81.0-99.0); NEUTROPHILS % 74.7 % (40.0-76.0); PLATELET 212 x1000/uL (130-400); RED BLOOD CELL COUNT 2.32 mill/uL (4.2-5.4); RED CELL DISTRIBUTION WIDTH 16.8 % (11.6-14.6)
[2019-07-12 05:27] LABS: CHLORIDE 106 mEq/L (98-107)
[2019-07-12] MEDS: CLONIDINE 0.3MG TABLET PO SCH ×3 (05:55→21:07)
[2019-07-12 08:00] VITALS: BP 115/51
[2019-07-12] MEDS: HYDROCHLOROTHIAZIDE 25MG TABLET PO SCH (09:36)
[2019-07-12] MEDS: LISINOPRIL 40MG TABLET PO SCH (09:37)
[2019-07-12] MEDS: DOCUSATE SODIUM 250MG CAPSULE PO SCH ×2 (09:38→17:24)
[2019-07-12] MEDS: OXYCODONE HCL 10MG TABLET SR 12HR PO SCH ×3 (09:38→21:00)
[2019-07-12] MEDS: FUROSEMIDE 40MG TABLET PO SCH (09:38)
[2019-07-12] MEDS: CAPECITABINE 500MG TABLET PO SCH (09:38)
[2019-07-12] MEDS ORDERED: LACTULOSE 20G/30ML UDC PO SCH (10:00)
[2019-07-12] MEDS ORDERED: NA PHOS,M-B/NA PHOS,DI-BA ENEMA 118ML PR PRN (10:00)
[2019-07-12] MEDS ORDERED: POTASSIUM CHLORIDE 20MEQ/PACKET PO SCH (11:00)
[2019-07-12 12:00] VITALS: BP 124/55
[2019-07-12] MEDS: THROAT LOZENGES-BENZOCAINE/MENTH/CETYLPYRD CL LOZENGES MM SCH ×3 (12:43→21:42)
[2019-07-12 16:00] VITALS: BP 110/48
[2019-07-12] MEDS: CAPECITABINE 500 MG PO SCH (17:25)
[2019-07-12 20:00] VITALS: BP 112/51
[2019-07-13] VITALS (8 sets, daily range): BP systolic 113–145; BP diastolic 53–60
[2019-07-13] MEDS: CLONIDINE 0.3MG TABLET PO SCH ×2 (06:00→14:26)
[2019-07-13] MEDS: CEFAZOLIN 1000MG PREMIX 50 ML IV SCH ×2 (06:30→14:26)
[2019-07-13 07:26] LABS: CHLORIDE 105 mEq/L (98-107)
[2019-07-13 07:44] LABS: PHOSPHORUS 0.9 mg/dL (2.5-4.9)
[2019-07-13] MEDS: DOCUSATE SODIUM 250MG CAPSULE PO SCH ×2 (09:26→18:06)
[2019-07-13] MEDS: AMLODIPINE 5MG TABLET PO SCH ×2 (09:26→21:15)
[2019-07-13] MEDS: LISINOPRIL 40MG TABLET PO SCH (09:27)
[2019-07-13] MEDS: HYDROCHLOROTHIAZIDE 25MG TABLET PO SCH (09:27)
[2019-07-13] MEDS: FUROSEMIDE 40MG TABLET PO SCH (09:27)
[2019-07-13] MEDS: OXYCODONE HCL 10MG TABLET SR 12HR PO SCH ×2 (09:28→21:14)
[2019-07-13] MEDS: CAPECITABINE 500 MG PO SCH ×2 (09:28→17:00)
[2019-07-13] MEDS: THROAT LOZENGES-BENZOCAINE/MENTH/CETYLPYRD CL LOZENGES MM SCH ×4 (09:34→21:12)
[2019-07-13 10:11] LABS: BASOPHILS % 0.5 % (0.0-2.0); EOSINOPHILS % 2.5 % (0.0-5.0); LYMPHOCYTES % 11.7 % (20.0-50.0); MEAN CORPUSCULAR HEMOGLOBIN 38.4 pg (28.0-32.0); MEAN CORPUSCULAR VOLUME 107.6 fL (81.0-99.0); MEAN PLATELET VOLUME 6.9 fl (7.4-10.4); NEUTROPHILS % 75.3 % (40.0-76.0); PLATELET 200 x1000/uL (130-400); RED BLOOD CELL COUNT 1.93 mill/uL (4.2-5.4); RED CELL DISTRIBUTION WIDTH 16.3 % (11.6-14.6)
[2019-07-13 10:15] LABS: HEMATOCRIT. 20.8 % (36.0-48.0); HEMOGLOBIN. 7.4 g/dL (12.0-16.0)
[2019-07-13] MEDS ORDERED: HYDROMORPHONE HCL/PF 2MG/ML CPJ IV PRN (10:15)
[2019-07-13] MEDS ORDERED: LACTULOSE 20G/30ML UDC PO NR (10:15)
[2019-07-13] MEDS ORDERED: NA PHOS,M-B/NA PHOS,DI-BA ENEMA 118ML PR NR (10:15)
[2019-07-13] MEDS ORDERED: POTASSIUM PHOS,M-BASIC-D-BASIC 30 MMOL in SODIUM CHLORIDE 0.9% 500 ML IV NR (11:00)
[2019-07-13] MEDS ORDERED: POTASSIUM CHLORIDE 20MEQ/PACKET PO NR (11:15)
[2019-07-13] MEDS: ENOXAPARIN 80MG/0.8ML SYR SUBCUT SCH ×2 (11:44→21:15)
[2019-07-13 13:00] LABS: TOTAL IRON BINDING CAPACITY 250 ug/dL (250-450)
== END 2019-07-13 22:06 | DRG 457 ==
LOC: 6EST 12:46 → MICUNO 07-09 10:59 → 6EST 07-10 15:25
PROVIDERS: ADMIT Internal Medicine Critical Care Medicine; ATTEND Internal Medicine Critical Care Medicine
PROC: 0SG1071 Fusion of 2 or more Lumbar Vertebral Joints with Autologous Tissue Substitute, Posterior Approach, Posterior Column, Open Approach (ICD-10-PCS; principal; 2019-07-09)
PROC: 4A11X4G Monitoring of Peripheral Nervous Electrical Activity, Intraoperative, External Approach (ICD-10-PCS; 2019-07-09)
PROC: 0QS706Z Reposition Left Upper Femur with Intramedullary Internal Fixation Device, Open Approach (ICD-10-PCS; 2019-07-11)
PROC: 30233N1 Transfusion of Nonautologous Red Blood Cells into Peripheral Vein, Percutaneous Approach (ICD-10-PCS; 2019-07-13)
DX: C79.51 Secondary malignant neoplasm of bone (principal); M84.552A Pathological fracture in neoplastic disease, left femur, initial encounter for fracture; G82.20 Paraplegia, unspecified; M48.061 Spinal stenosis, lumbar region without neurogenic claudication; E87.6 Hypokalemia; I10 Essential (primary) hypertension; J30.9 Allergic rhinitis, unspecified; K59.00 Constipation, unspecified; M47.26 Other spondylosis with radiculopathy, lumbar region; D64.9 Anemia, unspecified; G89.29 Other chronic pain; J32.9 Chronic sinusitis, unspecified; Z60.2 Problems related to living alone; Z79.01 Long term (current) use of anticoagulants; Z82.49 Family history of ischemic heart disease and other diseases of the circulatory system; Z85.3 Personal history of malignant neoplasm of breast; Z86.711 Personal history of pulmonary embolism; Z90.12 Acquired absence of left breast and nipple; Z92.21 Personal history of antineoplastic chemotherapy; Z92.3 Personal history of irradiation; Z88.1 Allergy status to other antibiotic agents; Z79.899 Other long term (current) drug therapy; Z03.818 Encounter for observation for suspected exposure to other biological agents ruled out
CPT/HCPCS: 36415; 71045; 72100; 72158; 73552; 76000; 80048; 80053; 81003; 83540; 83550; 83735; 84100; 85025; 86850; 86900; 86920; 88305; 88311; 93005; 93306; 95925; 95926; 95928; 95929; 97110; 97162; 97164; 97530; A9577; C1713; J0171; J0330; J0360; J0690; J1100; J1170; J1650; J2250; J2270; J2370; J2405; J2704; J2710; J2765; J3010; J3370; J3490; J7040; J7050; J7121; P9016; P9041; U0003-CS

== ENCOUNTER 2019-09-17 21:21 | Inpatient (IN) | payer MEDICARE, BC ==
[~2019-09-17] VITALS: Ht 167.6 cm; Wt 81.4 kg
[~2019-09-17 21:21] MED LIST changes: -ASPI-1073 PO; +CAPE500T15 PO; +HYDR-2510 MT; +HYDR1LIQ PO; +PRED10TA23 PO
[2019-09-17 22:51] LABS: BASOPHILS % 0.7 % (0.0-2.0); EOSINOPHILS % 0.6 % (0.0-5.0); HEMATOCRIT. 27.9 % (36.0-48.0); HEMOGLOBIN. 9.6 g/dL (12.0-16.0); LYMPHOCYTES % 16.4 % (20.0-50.0); MEAN CORPUSCULAR HEMOGLOBIN 38.5 pg (28.0-32.0); MEAN CORPUSCULAR VOLUME 111.5 fL (81.0-99.0); MONOCYTES % 12.3 % (2.0-8.0); PLATELET 400 x1000/uL (130-400); RED BLOOD CELL COUNT 2.51 mill/uL (4.2-5.4); RED CELL DISTRIBUTION WIDTH 19.2 % (11.6-14.6)
[2019-09-17 22:56] LABS: CHLORIDE 103 mEq/L (98-107)
[2019-09-17 22:59] LABS: D-DIMER 1.55 mg/L FEU (<0.50); INR 1.1; PROTHROMBIN TIME 11.4 sec (9.6-11.0)
[2019-09-17 23:23] LABS: PLATELET ESTIMATE NORMAL
[2019-09-17] MEDS ORDERED: MORPHINE SULFATE 4 MG/ML CPJ (NOT FOR IM USE) IV NR (23:40)
[2019-09-17] MEDS ORDERED: ONDANSETRON HCL 4MG/2ML INJ IV NR (23:40)
[2019-09-17] MEDS ORDERED: PIPERACILLIN/TAZ 3.375G PREMIX 50 ML IV ONE (23:45)
[2019-09-18] MEDS ORDERED: LEVOFLOXACIN 500MG PREMIX 100 ML IV NR (01:00)
[2019-09-18] MEDS ORDERED: HYDROCODONE/ACETAMINOPHEN 5/325MG TABLET PO ONE (01:15)
[2019-09-18 03:16] LABS: CLARITY URINE CLOUDY (CLEAR); COLOR URINE DARK YELLOW (YELLOW); KETONES URINE TRACE (NEGATIVE); LEUKOCYTE ESTERASE URINE NEGATIVE (NEGATIVE); NITRITE URINE NEGATIVE (NEGATIVE); OCCULT BLOOD URINE NEGATIVE (NEGATIVE); PROTEIN URINE 1+ (NEGATIVE); SPECIFIC GRAVITY URINE 1.032 (1.005-1.030)
[2019-09-18] MEDS ORDERED: HYDROMORPHONE HCL/PF 1MG/ML CPJ IV PRN (04:15)
[2019-09-18] MEDS ORDERED: DOCUSATE SODIUM 100MG CAPSULE PO PRN (10:15)
[2019-09-18] MEDS ORDERED: ONDANSETRON HCL 4MG/2ML INJ IV PRN (10:15)
[2019-09-18] MEDS ORDERED: VANCOMYCIN 1 G PREMIX 200 ML IV SCH (10:20)
[2019-09-18] MEDS ORDERED: AZTREONAM 1 G in DEXTROSE 5% WATER 50 ML IV SCH (11:00)
[2019-09-18 12:00] VITALS: BP 128/82
[2019-09-18] MEDS ORDERED: NON FORMULARY PATIENT HOME MED XX SCH (12:00)
[2019-09-18] MEDS: HYDROCODONE/ACETAMINOPHEN 10/325MG TABLET PO PRN ×2 (13:38→18:04)
[2019-09-18] MEDS ORDERED: BRIM15DR2 EACHEYE (14:00)
[2019-09-18] MEDS ORDERED: CLONIDINE 0.3MG TABLET PO SCH (14:00)
[2019-09-18] MEDS ORDERED: APIX5TAB PO (14:07)
[2019-09-18] MEDS ORDERED: FERR325T6 MT (14:08)
[2019-09-18] MEDS ORDERED: MORPHINE SULFATE 2 MG/ML CPJ (NOT FOR IM USE) IV PRN (15:00)
[2019-09-18] MEDS ORDERED: CLONIDINE 0.1MG TABLET PO NR (15:00)
[2019-09-18 16:00] VITALS: BP 107/42
[2019-09-18] MEDS: AZTREONAM 1 G in DEXTROSE 5% WATER 50 ML IV SCH ×2 (16:04→23:52)
[2019-09-18 19:11] VITALS: BP 128/82
[2019-09-18 20:00] VITALS: BP 107/40
[2019-09-18] MEDS: HYDROMORPHONE HCL/PF 2MG/ML CPJ IV PRN (20:02)
[2019-09-18] MEDS: CLONIDINE 0.3MG TABLET PO SCH (21:20)
[2019-09-19] VITALS (9 sets, daily range): BP systolic 68–158; BP diastolic 56–92
[2019-09-19] MEDS ORDERED: VANCOMYCIN 1 G PREMIX 200 ML IV SCH
[2019-09-19] MEDS: VANCOMYCIN 1 G PREMIX 200 ML IV SCH ×2 (01:31→17:49)
[2019-09-19] MEDS: HYDROMORPHONE HCL/PF 2MG/ML CPJ IV PRN ×2 (01:32→07:39)
[2019-09-19] MEDS: CLONIDINE 0.3MG TABLET PO SCH ×3 (06:00→21:07)
[2019-09-19] MEDS: FUROSEMIDE 40MG TABLET PO SCH (09:00)
[2019-09-19] MEDS: LISINOPRIL 40MG TABLET PO SCH ×2 (09:00→17:04)
[2019-09-19] MEDS: NIFEDIPINE XL 90MG TAB PO SCH (09:00)
[2019-09-19] MEDS: AZTREONAM 1 G in DEXTROSE 5% WATER 50 ML IV SCH ×2 (09:14→21:05)
[2019-09-19] MEDS: PREDNISONE 10MG TABLET PO SCH (09:30)
[2019-09-19] MEDS ORDERED: LIDOCAINE HCL 1% 20ML VIAL (Pyxis) INJ ONE (11:21)
[2019-09-19] MEDS ORDERED: SODIUM BICARBONATE 4% (2.4MEQ) 5ML VIAL IV ONE (11:21)
[2019-09-19] MEDS ORDERED: ALBUMIN HUMAN 25GM/100ML (25%) IV NR (12:00)
[2019-09-19] MEDS: MORPHINE SULFATE 15MG TABLET SR PO SCH (21:06)
[2019-09-20] VITALS: BP 82/46
[2019-09-20 04:00] VITALS: BP 87/32
[2019-09-20] MEDS: CLONIDINE 0.3MG TABLET PO SCH ×2 (05:53→14:22)
[2019-09-20 08:00] VITALS: BP 95/42
[2019-09-20] MEDS: PREDNISONE 10MG TABLET PO SCH (08:17)
[2019-09-20] MEDS: AZTREONAM 1 G in DEXTROSE 5% WATER 50 ML IV SCH ×2 (08:17→20:16)
[2019-09-20] MEDS: FUROSEMIDE 40MG TABLET PO SCH (08:18)
[2019-09-20] MEDS: MORPHINE SULFATE 15MG TABLET SR PO SCH ×2 (08:21→20:17)
[2019-09-20] MEDS: LISINOPRIL 40MG TABLET PO SCH (08:22)
[2019-09-20] MEDS: NIFEDIPINE XL 90MG TAB PO SCH (08:22)
[2019-09-20 12:00] VITALS: BP 104/45
[2019-09-20] MEDS: HYDROMORPHONE HCL/PF 2MG/ML CPJ IV PRN (12:41)
[2019-09-20] MEDS: VANCOMYCIN 1 G PREMIX 200 ML IV SCH (12:41)
[2019-09-20 16:00] VITALS: BP 84/53
[2019-09-20] MEDS ORDERED: SODIUM CHLORIDE 0.9% 500 ML IV ONE (19:45)
[2019-09-20 20:00] VITALS: BP 76/38
[2019-09-20] MEDS: CLONIDINE 0.1MG TABLET PO SCH (22:00)
[2019-09-21] VITALS: BP 78/40
[2019-09-21 04:00] VITALS: BP 86/43
[2019-09-21] MEDS: CLONIDINE 0.1MG TABLET PO SCH ×3 (05:21→21:29)
[2019-09-21 06:52] LABS: VANCOMYCIN TROUGH 22.5 ug/mL (5.0-10.0)
[2019-09-21 07:18] LABS: BASOPHILS % 0.1 % (0.0-2.0); EOSINOPHILS % 0.1 % (0.0-5.0); HEMOGLOBIN. 7.5 g/dL (12.0-16.0); LYMPHOCYTES % 10.2 % (20.0-50.0); MEAN CORPUSCULAR HEMOGLOBIN 37.2 pg (28.0-32.0); MEAN CORPUSCULAR VOLUME 109.5 fL (81.0-99.0); MEAN PLATELET VOLUME 6.9 fl (7.4-10.4); MONOCYTES % 8.4 % (2.0-8.0); NEUTROPHILS % 81.2 % (40.0-76.0); PLATELET 325 x1000/uL (130-400); RED BLOOD CELL COUNT 2.01 mill/uL (4.2-5.4); RED CELL DISTRIBUTION WIDTH 19.4 % (11.6-14.6)
[2019-09-21 08:00] VITALS: BP 96/44
[2019-09-21] MEDS: MORPHINE SULFATE 15MG TABLET SR PO SCH ×2 (08:46→21:30)
[2019-09-21] MEDS: PREDNISONE 10MG TABLET PO SCH (08:49)
[2019-09-21] MEDS: AZTREONAM 1 G in DEXTROSE 5% WATER 50 ML IV SCH (08:49)
[2019-09-21] MEDS: NIFEDIPINE XL 90MG TAB PO SCH (09:00)
[2019-09-21] MEDS: LISINOPRIL 40MG TABLET PO SCH (09:00)
[2019-09-21 12:00] VITALS: BP 135/53
[2019-09-21] MEDS ORDERED: VANCOMYCIN 1 G PREMIX 200 ML IV SCH (12:00)
[2019-09-21] MEDS ORDERED: BISACODYL 5MG TABLET PO PRN (15:00)
[2019-09-22] VITALS (7 sets, daily range): BP systolic 99–128; BP diastolic 54–69
[2019-09-22] MEDS: CLONIDINE 0.1MG TABLET PO SCH ×3 (05:44→22:01)
[2019-09-22] MEDS: PREDNISONE 10MG TABLET PO SCH (09:36)
[2019-09-22] MEDS: LISINOPRIL 40MG TABLET PO SCH (09:36)
[2019-09-22] MEDS: NIFEDIPINE XL 90MG TAB PO SCH (09:36)
[2019-09-22] MEDS: MORPHINE SULFATE 15MG TABLET SR PO SCH ×2 (09:37→22:02)
[2019-09-22] MEDS: ACETAMINOPHEN 325MG TABLET PO PRN (18:13)
[2019-09-23] VITALS: BP 103/58
[2019-09-23 04:30] VITALS: BP 107/50
[2019-09-23 09:04] VITALS: BP 122/61
[2019-09-23] MEDS: MORPHINE SULFATE 15MG TABLET SR PO SCH ×2 (09:37→20:00)
[2019-09-23] MEDS: LISINOPRIL 40MG TABLET PO SCH (09:38)
[2019-09-23] MEDS: CLONIDINE 0.1MG TABLET PO SCH ×3 (09:38→22:00)
[2019-09-23] MEDS: NIFEDIPINE XL 90MG TAB PO SCH (10:39)
[2019-09-23] MEDS: PREDNISONE 10MG TABLET PO SCH (10:39)
[2019-09-23 11:26] VITALS: BP 110/58
[2019-09-23 17:06] VITALS: BP 109/52
[2019-09-23 20:00] VITALS: BP 100/62
[2019-09-24] VITALS: BP 102/60
[2019-09-24 04:00] VITALS: BP 141/58
[2019-09-24] MEDS: CLONIDINE 0.1MG TABLET PO SCH ×2 (05:12→14:00)
[2019-09-24] MEDS: ACETAMINOPHEN 325MG TABLET PO PRN (05:16)
[2019-09-24 08:00] VITALS: BP 129/78
[2019-09-24] MEDS ORDERED: LACTULOSE 20G/30ML UDC PO PRN (08:42)
[2019-09-24] MEDS: PREDNISONE 10MG TABLET PO SCH (09:07)
[2019-09-24] MEDS: MORPHINE SULFATE 15MG TABLET SR PO SCH (09:07)
[2019-09-24] MEDS: NIFEDIPINE XL 90MG TAB PO SCH (09:07)
[2019-09-24] MEDS: LISINOPRIL 40MG TABLET PO SCH (09:08)
[2019-09-24] MEDS ORDERED: NA PHOS,M-B/NA PHOS,DI-BA ENEMA 118ML PR PRN (11:00)
[2019-09-24 12:00] VITALS: BP 125/72
[2019-09-24] MEDS ORDERED: APIXABAN 5 MG TABLET PO SCH ×2 (13:45→14:15)
[2019-09-24 15:54] VITALS: BP 123/64
[2019-09-24 16:16] VITALS: BP 113/56
[2019-09-25] MEDS ORDERED: APIXABAN 5 MG TABLET PO SCH (09:00)
[2019-09-28 09:11] LABS: CA 27.29 54.8 U/mL (0.0-38.6)
[2019-11-08] MEDS ORDERED: SENN-170 MT (10:59)
[2019-11-08] MEDS ORDERED: BISA10SU62 RC (10:59)
[2019-11-08] MEDS ORDERED: MOM MT (10:59)
== END 2019-09-24 17:21 | disposition home or self-care (01) | DRG 180 ==
LOC: ER 21:21 → 6WST 09-18 00:59 → EDBEDREQTM 09-18 01:02 → EDBEDREQ 09-18 01:02 → EDBEDREQDT 09-18 01:02 → ENRESERV 09-18 11:08
PROVIDERS: ADMIT Internal Medicine Critical Care Medicine; ATTEND Internal Medicine Critical Care Medicine
PROC: 0W9B3ZZ Drainage of Left Pleural Cavity, Percutaneous Approach (ICD-10-PCS; principal; 2019-09-19)
DX: C78.02 Secondary malignant neoplasm of left lung (principal); J18.9 Pneumonia, unspecified organism; J96.01 Acute respiratory failure with hypoxia; C79.51 Secondary malignant neoplasm of bone; R64 Cachexia; J91.0 Malignant pleural effusion; Z96.649 Presence of unspecified artificial hip joint; I10 Essential (primary) hypertension; Z86.711 Personal history of pulmonary embolism; Z79.01 Long term (current) use of anticoagulants; Z85.3 Personal history of malignant neoplasm of breast; Z90.12 Acquired absence of left breast and nipple; Z90.710 Acquired absence of both cervix and uterus; Z88.1 Allergy status to other antibiotic agents; Z91.09 Other allergy status, other than to drugs and biological substances; Z92.21 Personal history of antineoplastic chemotherapy; Z79.899 Other long term (current) drug therapy; Z68.29 Body mass index [BMI] 29.0-29.9, adult
CPT/HCPCS: 32555; 36415; 71045; 80048; 80053; 80202; 81003; 83605; 83615; 83880; 84145; 84484; 85025; 85379; 86300; 88108; 88305; 93005; 94618; 97162; 97166; 97530; 99291; J1170; J1956; J2270; J2405; J3370; J3490; J7060; J7512; P9047

== ENCOUNTER → 2019-10-03 | Outpatient (CLI) | payer MEDICARE, BC ==
[~2019-10-03] MED LIST changes: +APIX5TAB PO; +BRIM15DR2 EACHEYE; +FERR325T6 MT
== END | disposition home or self-care (01) ==
LOC: CT 09:09
PROVIDERS: ATTEND Internal Medicine Critical Care Medicine
DX: M47.816 Spondylosis without myelopathy or radiculopathy, lumbar region (principal); M48.061 Spinal stenosis, lumbar region without neurogenic claudication; K44.9 Diaphragmatic hernia without obstruction or gangrene; R16.0 Hepatomegaly, not elsewhere classified; I70.90 Unspecified atherosclerosis; J92.9 Pleural plaque without asbestos; I25.10 Atherosclerotic heart disease of native coronary artery without angina pectoris; Z85.3 Personal history of malignant neoplasm of breast
CPT/HCPCS: 71250; 72148; 74176

== ENCOUNTER 2019-10-09 14:39 | Inpatient (IN) | payer MEDICARE, BC ==
[~2019-10-09] VITALS: Ht 165.1 cm; Wt 73.5 kg
[2019-10-09 15:23] VITALS: BP 144/40
[2019-10-09] MEDS ORDERED: ONDANSETRON HCL 4MG/2ML INJ IV PRN (16:30)
[2019-10-09] MEDS ORDERED: ACETAMINOPHEN 325MG TABLET PO PRN (16:30)
[2019-10-09] MEDS ORDERED: GUAIFENESIN 200MG/10ML SUGAR FREE UDC PO PRN (16:30)
[2019-10-09] MEDS ORDERED: IPRATROPIUM/ALBUTEROL 0.5-3(2.5)MG/3ML NEB NEB PRN (16:30)
[2019-10-09] MEDS ORDERED: HYDROCODONE/ACETAMINOPHEN 10/325MG TABLET PO SCH (16:30)
[2019-10-09] MEDS ORDERED: LORAZEPAM 0.5MG TABLET PO PRN (16:30)
[2019-10-09 16:38] VITALS: BP 144/40
[2019-10-09] MEDS ORDERED: FUROSEMIDE 40MG/4ML VIAL IVP NR (18:30)
[2019-10-09 18:58] LABS: BASOPHILS % 0.5 % (0.0-2.0); EOSINOPHILS % 0.6 % (0.0-5.0); LYMPHOCYTES % 20.1 % (20.0-50.0); MEAN CORPUSCULAR HEMOGLOBIN 36.7 pg (28.0-32.0); MEAN CORPUSCULAR VOLUME 107.4 fL (81.0-99.0); MEAN PLATELET VOLUME 6.6 fl (7.4-10.4); MONOCYTES % 8.8 % (2.0-8.0); PLATELET 515 x1000/uL (130-400); RED BLOOD CELL COUNT 1.88 mill/uL (4.2-5.4); RED CELL DISTRIBUTION WIDTH 20.8 % (11.6-14.6)
[2019-10-09 19:13] LABS: INR 1.1; PARTIAL THROMBOPLASTIN TIME 31.3 sec (23.4-31.0)
[2019-10-09 19:19] LABS: CHLORIDE 98 mEq/L (98-107)
[2019-10-09 19:28] LABS: HEMOGLOBIN. 6.9 g/dL (12.0-16.0)
[2019-10-09 19:29] LABS: HEMATOCRIT. 20.2 % (36.0-48.0)
[2019-10-09 20:00] VITALS: BP_SYST 138; BP_SYST 153; BP_DIAS 61; BP_DIAS 91
[2019-10-09] MEDS: IPRATROPIUM/ALBUTEROL 0.5-3(2.5)MG/3ML NEB HHN SCH (20:47)
[2019-10-09] MEDS ORDERED: POTASSIUM CHLORIDE 20MEQ TABLET SR PO NR (20:54)
[2019-10-09] MEDS: BRIMONIDINE 0.2% OPHTH DROPS 5ML BOTHEYE SCH (21:00)
[2019-10-09] MEDS: CLONIDINE 0.3MG TABLET PO SCH (21:01)
[2019-10-09] MEDS: HYDROCODONE/ACETAMINOPHEN 10/325MG TABLET PO PRN (22:40)
[2019-10-10] VITALS (8 sets, daily range): BP systolic 92–121; BP diastolic 45–64
[2019-10-10] MEDS: IPRATROPIUM/ALBUTEROL 0.5-3(2.5)MG/3ML NEB HHN SCH ×4 (01:03→21:22)
[2019-10-10] MEDS: CLONIDINE 0.3MG TABLET PO SCH ×3 (06:00→22:00)
[2019-10-10] MEDS: BRIMONIDINE 0.2% OPHTH DROPS 5ML BOTHEYE SCH ×3 (06:47→22:01)
[2019-10-10] MEDS ORDERED: SODIUM BICARBONATE 4% (2.4MEQ) 5ML VIAL IV ONE (07:45)
[2019-10-10] MEDS ORDERED: LIDOCAINE HCL 1% 20ML VIAL (Pyxis) INJ ONE (07:45)
[2019-10-10] MEDS: FUROSEMIDE 40MG/4ML VIAL IVP SCH (08:52)
[2019-10-10] MEDS: LISINOPRIL 40MG TABLET PO SCH (09:00)
[2019-10-10] MEDS ORDERED: FUROSEMIDE 40MG TABLET PO SCH (09:00)
[2019-10-10] MEDS ORDERED: AMLODIPINE 10MG TABLET PO SCH (09:00)
[2019-10-10] MEDS: HYDROCHLOROTHIAZIDE 25MG TABLET PO SCH ×2 (09:00→09:24)
[2019-10-10] MEDS ORDERED: NIFEDIPINE XL 90MG TAB PO SCH (10:00)
[2019-10-10] MEDS ORDERED: IOHEXOL-300 50 ML BOTTLE IV ONE (13:30)
[2019-10-10] MEDS ORDERED: FUROSEMIDE 40MG/4ML VIAL IVP NR (20:00)
[2019-10-10 21:26] LABS: CLARITY URINE CLEAR (CLEAR); COLOR URINE YELLOW (YELLOW); KETONES URINE NEGATIVE (NEGATIVE); LEUKOCYTE ESTERASE URINE TRACE (NEGATIVE); NITRITE URINE NEGATIVE (NEGATIVE); OCCULT BLOOD URINE NEGATIVE (NEGATIVE); PH URINE 5.5 (4.5-8.0); PROTEIN URINE NEGATIVE (NEGATIVE); SPECIFIC GRAVITY URINE 1.011 (1.005-1.030); UROBILINOGEN URINE 0.2 E.U./dL (0.2-1.0)
[2019-10-10 21:35] LABS: CHLORIDE 100 mEq/L (98-107)
[2019-10-10 21:51] LABS: EOSINOPHILS % 0.6 % (0.0-5.0); HEMATOCRIT. 24.4 % (36.0-48.0); HEMOGLOBIN. 8.1 g/dL (12.0-16.0); LYMPHOCYTES % 14.4 % (20.0-50.0); MEAN CORPUSCULAR HEMOGLOBIN 33.7 pg (28.0-32.0); MEAN CORPUSCULAR VOLUME 102.1 fL (81.0-99.0); MEAN PLATELET VOLUME 7.1 fl (7.4-10.4); MONOCYTES % 10.1 % (2.0-8.0); NEUTROPHILS % 73.9 % (40.0-76.0); PLATELET 454 x1000/uL (130-400); RED BLOOD CELL COUNT 2.39 mill/uL (4.2-5.4); RED CELL DISTRIBUTION WIDTH 23.8 % (11.6-14.6)
[2019-10-10 22:45] LABS: PLATELET ESTIMATE SLIGHTLY INCREASED
[2019-10-11] VITALS: BP 104/51
[2019-10-11] MEDS: HYDROCODONE/ACETAMINOPHEN 10/325MG TABLET PO PRN ×4 (00:03→23:14)
[2019-10-11] MEDS: IPRATROPIUM/ALBUTEROL 0.5-3(2.5)MG/3ML NEB HHN SCH ×4 (02:55→21:35)
[2019-10-11 04:00] VITALS: BP 117/55
[2019-10-11] MEDS: BRIMONIDINE 0.2% OPHTH DROPS 5ML BOTHEYE SCH ×3 (05:39→21:52)
[2019-10-11] MEDS: CLONIDINE 0.3MG TABLET PO SCH ×3 (05:42→21:53)
[2019-10-11 06:56] LABS: BASOPHILS % 0.4 % (0.0-2.0); EOSINOPHILS % 0.6 % (0.0-5.0); HEMATOCRIT. 23.5 % (36.0-48.0); HEMOGLOBIN. 7.9 g/dL (12.0-16.0); LYMPHOCYTES % 14.6 % (20.0-50.0); MEAN CORPUSCULAR HEMOGLOBIN 34.4 pg (28.0-32.0); MEAN CORPUSCULAR VOLUME 102.1 fL (81.0-99.0); MEAN PLATELET VOLUME 6.3 fl (7.4-10.4); MONOCYTES % 11.7 % (2.0-8.0); NEUTROPHILS % 72.7 % (40.0-76.0); PLATELET 394 x1000/uL (130-400)
[2019-10-11 07:09] LABS: CHLORIDE 99 mEq/L (98-107)
[2019-10-11 08:00] VITALS: BP 98/53
[2019-10-11] MEDS: LISINOPRIL 40MG TABLET PO SCH (08:39)
[2019-10-11] MEDS: HYDROCHLOROTHIAZIDE 25MG TABLET PO SCH (08:39)
[2019-10-11] MEDS: FUROSEMIDE 40MG/4ML VIAL IVP SCH (08:41)
[2019-10-11 12:00] VITALS: BP 108/56
[2019-10-11 16:00] VITALS: BP 107/50
[2019-10-11 20:11] VITALS: BP 120/53
[2019-10-12 00:03] VITALS: BP 104/55
[2019-10-12] MEDS: IPRATROPIUM/ALBUTEROL 0.5-3(2.5)MG/3ML NEB HHN SCH ×4 (02:30→21:07)
[2019-10-12 04:00] VITALS: BP 110/55
[2019-10-12] MEDS: CLONIDINE 0.3MG TABLET PO SCH ×3 (05:03→21:55)
[2019-10-12] MEDS: BRIMONIDINE 0.2% OPHTH DROPS 5ML BOTHEYE SCH ×3 (05:30→21:54)
[2019-10-12 08:00] VITALS: BP 132/59
[2019-10-12] MEDS ORDERED: SODIUM BICARBONATE 4% (2.4MEQ) 5ML VIAL IV ONE (09:01)
[2019-10-12] MEDS: FUROSEMIDE 40MG/4ML VIAL IVP SCH (11:30)
[2019-10-12] MEDS: HYDROCHLOROTHIAZIDE 25MG TABLET PO SCH (11:31)
[2019-10-12] MEDS: LISINOPRIL 40MG TABLET PO SCH (11:31)
[2019-10-12] MEDS: HYDROCODONE/ACETAMINOPHEN 10/325MG TABLET PO PRN (11:39)
[2019-10-12 12:00] VITALS: BP 127/83
[2019-10-12 16:00] VITALS: BP 135/62
[2019-10-12 20:00] VITALS: BP 114/51
[2019-10-13] VITALS (33 sets, daily range): BP systolic 102–212; BP diastolic 38–95
[2019-10-13] MEDS: IPRATROPIUM/ALBUTEROL 0.5-3(2.5)MG/3ML NEB HHN SCH ×4 (02:01→20:24)
[2019-10-13] MEDS: CLONIDINE 0.3MG TABLET PO SCH ×3 (06:00→21:06)
[2019-10-13] MEDS: BRIMONIDINE 0.2% OPHTH DROPS 5ML BOTHEYE SCH ×3 (06:04→23:39)
[2019-10-13 06:17] LABS: BASOPHILS % 0.5 % (0.0-2.0); HEMATOCRIT. 22.9 % (36.0-48.0); HEMOGLOBIN. 7.7 g/dL (12.0-16.0); LYMPHOCYTES % 16.3 % (20.0-50.0); MEAN CORPUSCULAR HEMOGLOBIN 34.3 pg (28.0-32.0); MEAN CORPUSCULAR VOLUME 102.2 fL (81.0-99.0); MEAN PLATELET VOLUME 6.3 fl (7.4-10.4); NEUTROPHILS % 72.2 % (40.0-76.0); PLATELET 367 x1000/uL (130-400); RED BLOOD CELL COUNT 2.24 mill/uL (4.2-5.4); RED CELL DISTRIBUTION WIDTH 23.1 % (11.6-14.6)
[2019-10-13 06:42] LABS: CHLORIDE 100 mEq/L (98-107)
[2019-10-13] MEDS: LISINOPRIL 40MG TABLET PO SCH (08:45)
[2019-10-13] MEDS: FUROSEMIDE 40MG/4ML VIAL IVP SCH (08:45)
[2019-10-13] MEDS: HYDROCHLOROTHIAZIDE 25MG TABLET PO SCH (08:46)
[2019-10-13] MEDS ORDERED: BACITRACIN 50,000 UNITS/VIAL ONE (09:30)
[2019-10-13] MEDS ORDERED: NORMAL SALINE 0.9% 10 ML SYR ONE (09:30)
[2019-10-13] MEDS ORDERED: BACITRACIN 15GM TUBE TOP ONE (09:30)
[2019-10-13] MEDS ORDERED: BUPIVACAINE HCL/EPINEPHRINE/PF 0.5%/0.0005 10ML ONE (09:30)
[2019-10-13] MEDS ORDERED: THROMBIN (BOVINE) 5000 UNITS/VIAL TOP ONE (09:30)
[2019-10-13] MEDS ORDERED: SKIN ADHESIVE 0.7 GM EA TOP ONE (09:30)
[2019-10-13] MEDS ORDERED: TETRACAINE/BENZOCAINE/BUTAMBEN 20 GM SPRAY MM ONE (09:31)
[2019-10-13] MEDS ORDERED: LIDOCAINE HCL 2% JELLY 5ML ONE (09:31)
[2019-10-13] MEDS ORDERED: LIDOCAINE HCL/EPINEPHRINE 1%-EPI 1:100,000 20 ML VIAL ONE (09:39)
[2019-10-13] MEDS ORDERED: TALC 3 GM VIAL IX SCH (10:00)
[2019-10-13] MEDS ORDERED: VASOPRESSIN 20 UNIT/ML 1ML ONE (10:35)
[2019-10-13] MEDS ORDERED: ROCURONIUM BROMIDE 10MG/ML VIAL 5ML IV ONE (10:39)
[2019-10-13] MEDS ORDERED: PROPOFOL 200MG/20ML VIAL IV ONE (10:39)
[2019-10-13] MEDS ORDERED: CEFAZOLIN SODIUM 1000MG/VIAL ONE (11:31)
[2019-10-13] MEDS ORDERED: DEXAMETHASONE 4MG/ML 1ML VIAL ONE (11:31)
[2019-10-13] MEDS ORDERED: NEOSTIGMINE METHYLSULFATE 1MG/ML 10 ML VIAL ONE (12:01)
[2019-10-13] MEDS ORDERED: GLYCOPYRROLATE 0.2 MG/ML 2ML VIAL ONE (12:01)
[2019-10-13] MEDS ORDERED: HYDRALAZINE 20MG/ML VIAL ONE (12:10)
[2019-10-13] MEDS ORDERED: MEPERIDINE HCL/PF 25MG/ML CPJ IV PRN (12:45)
[2019-10-13] MEDS ORDERED: HYDROMORPHONE HCL/PF 2MG/ML CPJ IV PRN (12:45)
[2019-10-13] MEDS ORDERED: LABETALOL 5MG/ML SYR 20 MG/4 ML SYRINGE IV PRN (12:45)
[2019-10-13] MEDS ORDERED: ONDANSETRON HCL 4MG/2ML INJ IV PRN (12:45)
[2019-10-13 16:05] LABS: HEMOGLOBIN 11.8 g/dL (12.0-16.0); MEAN CORPUSCULAR HEMOGLOBIN 33.4 pg (28.0-32.0); MEAN CORPUSCULAR VOLUME 96.4 fL (81.0-99.0); PLATELET 337 x1000/uL (130-400); RED BLOOD CELL COUNT 3.52 mill/uL (4.2-5.4); RED CELL DISTRIBUTION WIDTH 21.1 % (11.6-14.6)
[2019-10-13 16:36] LABS: CHLORIDE 100 mEq/L (98-107)
[2019-10-13] MEDS: MORPHINE SULFATE 2 MG/ML CPJ (NOT FOR IM USE) IV PRN (16:43)
[2019-10-13] MEDS ORDERED: HYDRALAZINE HCL 25MG TABLET PO PRN (17:02)
[2019-10-13] MEDS: HYDROCODONE/ACETAMINOPHEN 10/325MG TABLET PO PRN (17:26)
[2019-10-13] MEDS: OXYCODONE HCL 10MG TABLET SR 12HR PO SCH (21:09)
[2019-10-13] MEDS ORDERED: ALBUMIN HUMAN 12.5G/250ML (5%) IV NR (23:29)
[2019-10-14] VITALS (92 sets, daily range): BP systolic -18–175; BP diastolic -18–96
[2019-10-14] MEDS: IPRATROPIUM/ALBUTEROL 0.5-3(2.5)MG/3ML NEB HHN SCH ×5 (02:10→20:12)
[2019-10-14] MEDS: MORPHINE SULFATE 2 MG/ML CPJ (NOT FOR IM USE) IV PRN ×4 (02:14→16:07)
[2019-10-14] MEDS: BRIMONIDINE 0.2% OPHTH DROPS 5ML BOTHEYE SCH ×3 (05:06→21:18)
[2019-10-14] MEDS: CLONIDINE 0.3MG TABLET PO SCH ×3 (05:07→21:17)
[2019-10-14 05:48] LABS: HEMATOCRIT. 31.5 % (36.0-48.0); HEMOGLOBIN. 10.9 g/dL (12.0-16.0); MEAN CORPUSCULAR HEMOGLOBIN 33.2 pg (28.0-32.0); MEAN CORPUSCULAR VOLUME 96.2 fL (81.0-99.0); MEAN PLATELET VOLUME 6.5 fl (7.4-10.4); PLATELET 319 x1000/uL (130-400); RED BLOOD CELL COUNT 3.28 mill/uL (4.2-5.4); RED CELL DISTRIBUTION WIDTH 20.8 % (11.6-14.6)
[2019-10-14 05:50] LABS: CHLORIDE 101 mEq/L (98-107)
[2019-10-14] MEDS: LISINOPRIL 40MG TABLET PO SCH (08:19)
[2019-10-14] MEDS: OXYCODONE HCL 10MG TABLET SR 12HR PO SCH ×2 (08:19→21:18)
[2019-10-14] MEDS: FUROSEMIDE 40MG/4ML VIAL IVP SCH (08:19)
[2019-10-14] MEDS: HYDROCHLOROTHIAZIDE 25MG TABLET PO SCH (12:19)
[2019-10-14 21:11] LABS: PLATELET ESTIMATE NORMAL
[2019-10-15] VITALS (51 sets, daily range): BP systolic 94–154; BP diastolic 44–79
[2019-10-15] MEDS: MORPHINE SULFATE 2 MG/ML CPJ (NOT FOR IM USE) IV PRN ×2 (03:30→10:09)
[2019-10-15] MEDS: BRIMONIDINE 0.2% OPHTH DROPS 5ML BOTHEYE SCH ×3 (05:31→21:01)
[2019-10-15] MEDS: CLONIDINE 0.3MG TABLET PO SCH ×3 (05:31→21:01)
[2019-10-15 06:23] LABS: HEMATOCRIT. 30.9 % (36.0-48.0); HEMOGLOBIN. 10.4 g/dL (12.0-16.0); MEAN CORPUSCULAR HEMOGLOBIN 32.8 pg (28.0-32.0); MEAN CORPUSCULAR VOLUME 97.5 fL (81.0-99.0); MEAN PLATELET VOLUME 6.7 fl (7.4-10.4); PLATELET 296 x1000/uL (130-400); RED BLOOD CELL COUNT 3.17 mill/uL (4.2-5.4); RED CELL DISTRIBUTION WIDTH 20.3 % (11.6-14.6)
[2019-10-15 06:33] LABS: CHLORIDE 99 mEq/L (98-107)
[2019-10-15] MEDS: IPRATROPIUM/ALBUTEROL 0.5-3(2.5)MG/3ML NEB HHN SCH ×3 (08:20→20:55)
[2019-10-15] MEDS: FUROSEMIDE 40MG/4ML VIAL IVP SCH (09:04)
[2019-10-15] MEDS: OXYCODONE HCL 10MG TABLET SR 12HR PO SCH ×2 (09:04→21:01)
[2019-10-15] MEDS: LISINOPRIL 40MG TABLET PO SCH (09:04)
[2019-10-15] MEDS ORDERED: POTASSIUM CHLORIDE 20MEQ TABLET SR PO SCH (09:30)
[2019-10-15] MEDS ORDERED: MEGESTROL ACETATE 40MG TABLET PO SCH (11:45)
[2019-10-15 11:55] LABS: PLATELET ESTIMATE NORMAL
[2019-10-15] MEDS: MEGESTROL ACETATE 400 MG/10 ML UDC PO SCH ×2 (11:55→21:02)
[2019-10-16] VITALS (27 sets, daily range): BP systolic 84–149; BP diastolic 39–68
[2019-10-16] MEDS: IPRATROPIUM/ALBUTEROL 0.5-3(2.5)MG/3ML NEB HHN SCH ×3 (02:08→21:08)
[2019-10-16] MEDS: MORPHINE SULFATE 2 MG/ML CPJ (NOT FOR IM USE) IV PRN ×2 (03:49→21:38)
[2019-10-16 05:53] LABS: BASOPHILS % 0.2 % (0.0-2.0); EOSINOPHILS % 0.4 % (0.0-5.0); HEMATOCRIT. 30.6 % (36.0-48.0); HEMOGLOBIN. 10.4 g/dL (12.0-16.0); LYMPHOCYTES % 9.3 % (20.0-50.0); MEAN CORPUSCULAR HEMOGLOBIN 33.5 pg (28.0-32.0); MEAN CORPUSCULAR VOLUME 98.3 fL (81.0-99.0); MEAN PLATELET VOLUME 6.7 fl (7.4-10.4); MONOCYTES % 8.2 % (2.0-8.0); NEUTROPHILS % 81.9 % (40.0-76.0); PLATELET 281 x1000/uL (130-400); RED BLOOD CELL COUNT 3.11 mill/uL (4.2-5.4); RED CELL DISTRIBUTION WIDTH 19.9 % (11.6-14.6)
[2019-10-16] MEDS: CLONIDINE 0.3MG TABLET PO SCH ×3 (06:00→21:15)
[2019-10-16] MEDS: BRIMONIDINE 0.2% OPHTH DROPS 5ML BOTHEYE SCH ×3 (06:04→21:39)
[2019-10-16 06:06] LABS: PHOSPHORUS 2.4 mg/dL (2.5-4.9)
[2019-10-16] MEDS: OXYCODONE HCL 10MG TABLET SR 12HR PO SCH ×2 (08:32→21:11)
[2019-10-16] MEDS: LISINOPRIL 40MG TABLET PO SCH (08:32)
[2019-10-16] MEDS: FUROSEMIDE 40MG/4ML VIAL IVP SCH (08:32)
[2019-10-16] MEDS: MEGESTROL ACETATE 400 MG/10 ML UDC PO SCH ×2 (08:49→21:12)
[2019-10-17] VITALS (12 sets, daily range): BP systolic 94–141; BP diastolic 41–65
[2019-10-17] MEDS: IPRATROPIUM/ALBUTEROL 0.5-3(2.5)MG/3ML NEB HHN SCH ×4 (01:36→20:30)
[2019-10-17 05:54] LABS: HEMATOCRIT. 30.7 % (36.0-48.0); HEMOGLOBIN. 10.4 g/dL (12.0-16.0); MEAN CORPUSCULAR HEMOGLOBIN 32.7 pg (28.0-32.0); MEAN CORPUSCULAR VOLUME 96.7 fL (81.0-99.0); PLATELET 276 x1000/uL (130-400); RED BLOOD CELL COUNT 3.18 mill/uL (4.2-5.4); RED CELL DISTRIBUTION WIDTH 19.5 % (11.6-14.6)
[2019-10-17] MEDS: CLONIDINE 0.3MG TABLET PO SCH ×3 (06:17→22:09)
[2019-10-17] MEDS: BRIMONIDINE 0.2% OPHTH DROPS 5ML BOTHEYE SCH ×3 (06:18→22:10)
[2019-10-17] MEDS: OXYCODONE HCL 10MG TABLET SR 12HR PO SCH ×2 (09:00→22:09)
[2019-10-17] MEDS: MEGESTROL ACETATE 400 MG/10 ML UDC PO SCH ×2 (09:51→22:08)
[2019-10-17] MEDS: POLYETHYLENE GLYCOL 3350 (17GM) 1 DOSE PACK PO SCH (14:00)
[2019-10-17 14:23] LABS: PLATELET ESTIMATE NORMAL
[2019-10-17] MEDS ORDERED: BISACODYL 10MG SUPP PR PRN (15:45)
[2019-10-17] MEDS: MORPHINE SULFATE 2 MG/ML CPJ (NOT FOR IM USE) IV PRN (19:34)
[2019-10-18] VITALS (8 sets, daily range): BP systolic 94–126; BP diastolic 48–66
[2019-10-18] MEDS: IPRATROPIUM/ALBUTEROL 0.5-3(2.5)MG/3ML NEB HHN SCH ×4 (02:15→15:43)
[2019-10-18] MEDS: CLONIDINE 0.3MG TABLET PO SCH (05:43)
[2019-10-18] MEDS: BRIMONIDINE 0.2% OPHTH DROPS 5ML BOTHEYE SCH (05:43)
[2019-10-18 05:46] LABS: CHLORIDE 97 mEq/L (98-107)
[2019-10-18 06:22] LABS: BASOPHILS % 0.5 % (0.0-2.0); EOSINOPHILS % 0.2 % (0.0-5.0); HEMATOCRIT. 30.9 % (36.0-48.0); HEMOGLOBIN. 10.4 g/dL (12.0-16.0); LYMPHOCYTES % 7.4 % (20.0-50.0); MEAN CORPUSCULAR HEMOGLOBIN 32.8 pg (28.0-32.0); MEAN CORPUSCULAR VOLUME 97.3 fL (81.0-99.0); MEAN PLATELET VOLUME 7.3 fl (7.4-10.4); MONOCYTES % 8.7 % (2.0-8.0); NEUTROPHILS % 83.2 % (40.0-76.0); PLATELET 294 x1000/uL (130-400); RED BLOOD CELL COUNT 3.18 mill/uL (4.2-5.4); RED CELL DISTRIBUTION WIDTH 19.4 % (11.6-14.6)
[2019-10-18] MEDS: OXYCODONE HCL 10MG TABLET SR 12HR PO SCH (09:22)
[2019-10-18] MEDS: MEGESTROL ACETATE 400 MG/10 ML UDC PO SCH (09:22)
[2019-10-18] MEDS: POLYETHYLENE GLYCOL 3350 (17GM) 1 DOSE PACK PO SCH (10:12)
== END 2019-10-18 15:30 | disposition home health service (06) | DRG 163 ==
LOC: 5EST 14:39 → 8WST 10-10 01:25 → CVICU 10-13 15:37 → 3WST 10-16 14:56
PROVIDERS: ADMIT Internal Medicine Critical Care Medicine; ATTEND Internal Medicine Critical Care Medicine
PROC: 05H533Z Insertion of Infusion Device into Right Subclavian Vein, Percutaneous Approach (ICD-10-PCS; 2019-10-10)
PROC: B516ZZA Fluoroscopy of Right Subclavian Vein, Guidance (ICD-10-PCS; 2019-10-10)
PROC: B546ZZA Ultrasonography of Right Subclavian Vein, Guidance (ICD-10-PCS; 2019-10-10)
PROC: 30233N1 Transfusion of Nonautologous Red Blood Cells into Peripheral Vein, Percutaneous Approach (ICD-10-PCS; 2019-10-10)
PROC: 0W9B30Z Drainage of Left Pleural Cavity with Drainage Device, Percutaneous Approach (ICD-10-PCS; 2019-10-12)
PROC: 0BJ08ZZ Inspection of Tracheobronchial Tree, Via Natural or Artificial Opening Endoscopic (ICD-10-PCS; principal; 2019-10-13)
PROC: 0B5P4ZZ Destruction of Left Pleura, Percutaneous Endoscopic Approach (ICD-10-PCS; 2019-10-13)
PROC: 0BCL8ZZ Extirpation of Matter from Left Lung, Via Natural or Artificial Opening Endoscopic (ICD-10-PCS; 2019-10-13)
PROC: 3E0L3GC Introduction of Other Therapeutic Substance into Pleural Cavity, Percutaneous Approach (ICD-10-PCS; 2019-10-13)
PROC: 0W9B30Z Drainage of Left Pleural Cavity with Drainage Device, Percutaneous Approach (ICD-10-PCS; 2019-10-13)
DX: C78.02 Secondary malignant neoplasm of left lung (principal); J96.00 Acute respiratory failure, unspecified whether with hypoxia or hypercapnia; J18.9 Pneumonia, unspecified organism; I50.33 Acute on chronic diastolic (congestive) heart failure; J91.0 Malignant pleural effusion; C78.7 Secondary malignant neoplasm of liver and intrahepatic bile duct; C79.51 Secondary malignant neoplasm of bone; E87.1 Hypo-osmolality and hyponatremia; J94.8 Other specified pleural conditions; M84.452A Pathological fracture, left femur, initial encounter for fracture; N17.9 Acute kidney failure, unspecified; I11.0 Hypertensive heart disease with heart failure; C50.919 Malignant neoplasm of unspecified site of unspecified female breast; J32.9 Chronic sinusitis, unspecified; E87.6 Hypokalemia; J30.9 Allergic rhinitis, unspecified; M48.061 Spinal stenosis, lumbar region without neurogenic claudication; D64.9 Anemia, unspecified; M47.816 Spondylosis without myelopathy or radiculopathy, lumbar region; M19.90 Unspecified osteoarthritis, unspecified site; Z20.828 Contact with and (suspected) exposure to other viral communicable diseases; E87.5 Hyperkalemia; Z90.12 Acquired absence of left breast and nipple; Z85.3 Personal history of malignant neoplasm of breast; Z88.0 Allergy status to penicillin; Z88.8 Allergy status to other drugs, medicaments and biological substances; Z91.09 Other allergy status, other than to drugs and biological substances; Z79.891 Long term (current) use of opiate analgesic; Z79.01 Long term (current) use of anticoagulants; Z79.899 Other long term (current) drug therapy; Z86.711 Personal history of pulmonary embolism; Z17.0 Estrogen receptor positive status [ER+]; Z82.49 Family history of ischemic heart disease and other diseases of the circulatory system
CPT/HCPCS: 32555; 36415; 36573; 71045; 74018; 76937; 80048; 80053; 81003; 83615; 83735; 83880; 84100; 84443; 84484; 85025; 85027; 85384; 86850; 86900; 86920; 87070; 87075; 87077; 87102; 87116; 87186; 87635; 88108; 88305; 93005; 93306; 93308; 93970; 94640; 97162; 97166; C1725; C1769; J0171; J0360; J0690; J1100; J1940; J2270; J2405; J2704; J2710; J3490; P9016; P9041; Q9967

== ENCOUNTER → 2019-11-01 | Outpatient (CLI) | payer MEDICARE, BC ==
[~2019-11-01] MED LIST changes: -APIX5TAB PO; +BISA10SU62 RC; +MOM MT; +SENN-170 MT
== END | disposition home or self-care (01) ==
LOC: LAB 08:19
PROVIDERS: ATTEND Internal Medicine Hematology & Oncology
DX: Z20.828 Contact with and (suspected) exposure to other viral communicable diseases (principal)
CPT/HCPCS: C9803; U0003

== ENCOUNTER 2019-11-26 03:33 | Emergency (ER) | payer MEDICARE, BC ==
[~2019-11-26] VITALS: Ht 175.3 cm; Wt 73.0 kg
[2019-11-26] MEDS ORDERED: ONDANSETRON HCL 4MG/2ML INJ IV STA (04:17)
[2019-11-26] MEDS ORDERED: MORPHINE SULFATE 4 MG/ML CPJ (NOT FOR IM USE) IV STA (04:17)
[2019-11-26] MEDS ORDERED: SODIUM CHLORIDE 0.9% 1000ML BAG (SEPSIS BOLUS) IV ONE (04:30)
[2019-11-26] MEDS ORDERED: CEFTRIAXONE 1 G PREMIX 50 ML IV ONE (04:30)
[2019-11-26 05:01] LABS: CHLORIDE 84 mEq/L (98-107)
[2019-11-26 05:02] LABS: HEMATOCRIT. 24.7 % (36.0-48.0); HEMOGLOBIN. 8.1 g/dL (12.0-16.0); MEAN CORPUSCULAR HEMOGLOBIN 29.8 pg (28.0-32.0); MEAN CORPUSCULAR VOLUME 90.9 fL (81.0-99.0); MEAN PLATELET VOLUME 7.6 fl (7.4-10.4); PLATELET 608 x1000/uL (130-400); RED BLOOD CELL COUNT 2.72 mill/uL (4.2-5.4); RED CELL DISTRIBUTION WIDTH 21.8 % (11.6-14.6)
[2019-11-26 05:09] LABS: BG CARBOXYHEMOGLOBIN 0.2 % (0.5-1.5); BG DEOXYHEMOGLOBIN 1.1 % (0.0-5.0); BG FRACTION INSPIRED OXYGEN 60; BG HCO3 ACT 24.1 mmol/L (22.0-26.0); BG METHEMOGLOBIN 0.1 % (0.0-1.5); BG OXYGEN SATURATION 98.9 % (92.0-98.5); BG OXYHEMOGLOBIN 98.6 % (94.0-97.0); BG PCO2 41.8 mmHg (35.0-45.0); BG PH 7.378 (7.350-7.450); BG PO2 140.4 mmHg (75.0-100.0); BG SAMPLE SITE RIGHT RADIAL; BG TOTAL RESPIRATORY RATE 26 b/min; BG VENT MODE MASK - BIPAP
[2019-11-26 05:35] LABS: PLATELET ESTIMATE INCREASED
[2019-11-26] MEDS ORDERED: INSULIN REGULAR (HUMULIN R) 300UNITS/3ML IV ONE (06:15)
[2019-11-26] MEDS ORDERED: CALCIUM CHLORIDE 1GM/10ML SYR IV ONE ×2 (06:15→09:00)
[2019-11-26] MEDS ORDERED: SODIUM BICARBONATE 8.4% 1 MEQ/ML 50ML SYR IV ONE ×2 (06:15→09:00)
[2019-11-26] MEDS ORDERED: SODIUM POLYSTYRENE SULFONATE 15 G/60 ML BOT PO ONE (06:15)
[2019-11-26] MEDS ORDERED: DEXTROSE 50% WATER 50ML SYRINGE IV ONE (06:15)
[2019-11-26 06:26] LABS: CLARITY URINE TURBID (CLEAR); COLOR URINE DARK YELLOW (YELLOW); KETONES URINE TRACE (NEGATIVE); LEUKOCYTE ESTERASE URINE 1+ (NEGATIVE); NITRITE URINE NEGATIVE (NEGATIVE); OCCULT BLOOD URINE NEGATIVE (NEGATIVE); PROTEIN URINE 1+ (NEGATIVE); SPECIFIC GRAVITY URINE 1.025 (1.005-1.030)
[2019-11-26 06:46] LABS: BG BASE EXCESS -2.8 mmol/L (-2.0-2.0); BG CARBOXYHEMOGLOBIN 0.3 % (0.5-1.5); BG DEOXYHEMOGLOBIN 0.9 % (0.0-5.0); BG METHEMOGLOBIN 0.1 % (0.0-1.5); BG OXYGEN SATURATION 99.1 % (92.0-98.5); BG OXYHEMOGLOBIN 98.7 % (94.0-97.0); BG PCO2 44.8 mmHg (35.0-45.0); BG PH 7.329 (7.350-7.450); BG PO2 155.9 mmHg (75.0-100.0); BG SAMPLE SITE RIGHT BRACHIAL; BG TOTAL HEMOGLOBIN 9.4 g/dL (12.0-18.0); BG VENT MODE MASK - BIPAP
[2019-11-26] MEDS ORDERED: FUROSEMIDE 40MG/4ML VIAL IVP ONE (07:00)
[2019-11-26] MEDS ORDERED: EPINEPHRINE 0.1MG/ML (1:10,000) 10ML SYR ONE (09:00)
[2019-11-26] MEDS ORDERED: NOREPINEPHRINE 8MG/250ML PMX 250 ML IV ONE (09:45)
[2019-11-26] MEDS ORDERED: MIDAZOLAM HCL 100 MG in DEXT 5% WATER 80 ML IV ONE (17:45)
[2019-11-26] MEDS ORDERED: MIDAZOLAM HCL 2 MG/2 ML VIAL IV ONE (17:45)
[2019-11-26] MEDS ORDERED: MIDAZOLAM HCL 100 MG in DEXT 5% WATER 80 ML IV PRN (18:00)
[2019-11-26] MEDS ORDERED: PHENYLEPHRINE 50 MG in DEXT 5% WATER 245 ML IV PRN ×2 (18:45→19:00)
[2019-11-26 20:00] VITALS: BP 84/52
[2019-11-26] MEDS ORDERED: NOREPINEPHRINE 8MG/250ML PMX 250 ML IV SCH (20:00)
[2019-11-26 20:38] LABS: BG BASE EXCESS -13.9 mmol/L (-2.0-2.0); BG CARBOXYHEMOGLOBIN 0.2 % (0.5-1.5); BG DEOXYHEMOGLOBIN 0.2 % (0.0-5.0); BG FRACTION INSPIRED OXYGEN 100; BG HCO3 ACT 14.8 mmol/L (22.0-26.0); BG METHEMOGLOBIN 0.5 % (0.0-1.5); BG OXYGEN SATURATION 99.8 % (92.0-98.5); BG OXYHEMOGLOBIN 99.1 % (94.0-97.0); BG PCO2 48.2 mmHg (35.0-45.0); BG PH 7.105 (7.350-7.450); BG PO2 347.9 mmHg (75.0-100.0); BG SAMPLE SITE RIGHT FEMORAL; BG TOTAL HEMOGLOBIN 7.8 g/dL (12.0-18.0); BG VENT MODE VENT - AC
== END 2019-11-27 01:33 | disposition expired ==
LOC: ER 03:33 → EDBEDREQTM 05:28 → EDBEDREQ 05:28 → EDBEDREQSVC 05:28 → MICUSO 06:55 → UNDOADMIN 06:55 → EDBEDREQ 07:00 → EDBEDREQSVC 07:00 → ENRESERV 21:12 → CANRESERV 21:12 → ER 11-27 01:33
DX: N17.9 Acute kidney failure, unspecified (principal); J96.00 Acute respiratory failure, unspecified whether with hypoxia or hypercapnia; C50.919 Malignant neoplasm of unspecified site of unspecified female breast; C78.7 Secondary malignant neoplasm of liver and intrahepatic bile duct; C78.00 Secondary malignant neoplasm of unspecified lung; C79.51 Secondary malignant neoplasm of bone; I46.9 Cardiac arrest, cause unspecified; J91.0 Malignant pleural effusion; E87.5 Hyperkalemia; E87.2 Acidosis; I10 Essential (primary) hypertension; D63.0 Anemia in neoplastic disease; Z99.81 Dependence on supplemental oxygen; Z03.818 Encounter for observation for suspected exposure to other biological agents ruled out; Z92.21 Personal history of antineoplastic chemotherapy; Z91.09 Other allergy status, other than to drugs and biological substances; Z88.0 Allergy status to penicillin
CPT/HCPCS: 31500; 36415; 36600; 71045; 76937; 78580; 80048; 80053; 81003; 82375; 82805; 82962; 83605; 83690; 83880; 83935; 84132; 84145; 84484; 85025; 85610; 87040; 87086; 87635; 93005; 94660; 96365; 96366; 96367; 96368; 96375; 99291; A9540; C1725; C1752; C1769; C1887; C9803; J0696; J1815; J1940; J2250; J2270; J2405; J3490; J7030; J7060; 94002; J2370